=== PATIENT | male | born 1950 | race Caucasian/White ===

== ENCOUNTER 2022-04-24 15:46 | Emergency (ER) | payer MEDICARE, OTHER ==
[~2022-04-24] VITALS: Ht 183 cm; Wt 104.0 kg
--- NOTE | 2022-04-24 16:17 | ED Neurological Problem ---
General Chief Complaint: Altered Mental Status Stated Complaint: CONFUSION History of Present Illness Date Seen by Provider: April 24, 2022 Time Seen by Provider: 15:55 Initial Comments 71-year-old male with history of CVA x2 most recently in February 21, 2022 here after being found down. Sister states that she went over to pick him up around 3 to bring him to her house for dinner. Patient knocked on the door he did not respond. She got some help and they open the door. He was asleep on the couch. They could not arouse him or wake him. They got someone to come help check the blood pressure. Patient then snapped out of his unresponsiveness and was asking what they were doing. Patient does seem to have some difficulty with recollection. They state that this has been going on for about a week. They state that he has been improving after his February 21 stroke and was doing well up until about a week ago when he started having given difficulty especially with short-term memory. Patient is able to remember long-term but is not having any success with short-term memory. Patient denies any pain today. 1 sister states he had a little right-sided eye droopiness when they woke up but is not there now. Patient denies any headache. Patient denies any chest pain. No shortness of breath. No abdominal pain. No nausea no vomiting. Denies any weakness. Denies any numbness tingling. Patient is able to move all extremities. Timing/Duration: unknown, increasing Severity: moderate Associated Symptoms: confusion, loss of consciousness; No slurred speech, No tingling in legs/feet Allergies and Home Medications Patient Home Medication List Home Medication List Reviewed: Yes Aspirin (Adult Low Dose Aspirin EC) 81 Mg Tablet.dr, 81 MG PO DAILY PRN for cva Prescribed by: Bindu Sosa on 04/24/221731 Last Action: New Order Atorvastatin Calcium (Atorvastatin Calcium) 40 Mg Tablet, 40 MG PO DAILY Prescribed by: Bindu Sosa on 04/24/221731 Last Action: New Order Cetirizine HCl (Zyrtec) 10 Mg Tablet, 10 MG PO DAILY PRN for CONGESTION Prescribed by: Bindu Sosa on 04/24/221731 Last Action: New Order Cyanocobalamin (Vitamin B-12) (Vitamin B-12) 1,000 Mcg Tab.subl, 1,000 MCG SL DAILY Prescribed by: Bindu Sosa on 04/24/221731 Last Action: New Order Risperidone (Risperidone) 0.25 Mg Tablet, 0.25 MG PO HS Prescribed by: Bindu Sosa on 04/24/221731 Last Action: New Order Sertraline HCl (Sertraline HCl) 100 Mg Tablet, 100 MG PO DAILY Prescribed by: Bindu Sosa on 04/24/221731 Last Action: New Order Tamsulosin HCl (Flomax) 0.4 Mg Cap, 0.4 MG PO DAILY Prescribed by: Bindu Sosa on 04/24/221731 Last Action: New Order Thiamine HCl (B-1) 100 Mg Tablet, 100 MG PO DAILY Prescribed by: Bindu Sosa on 04/24/221731 Last Action: New Order Valsartan (Valsartan) 160 Mg Tablet, 160 MG PO DAILY Prescribed by: Bindu Sosa on 04/24/221731 Last Action: New Order Review of Systems Review of Systems Constitutional: see HPI Psychiatric/Neurological: Cognitive Dysfunction; Denies Headache, Denies Numbness, Denies Weakness Past Eyxtxuo-Onyfoc-Kertil Hx Patient Social History Tobacco Use?: No Physical Exam Vital Signs Vital Signs - First Documented 04/24/22 15:46 Temp 36.4 Pulse 73 Resp 12 B/P (MAP) 170/96 (120) Pulse Ox 97 O2 Delivery Room Air Capillary Refill : Height, Weight, BMI Height: '" Weight: lbs. oz. kg; BMI Method: General Appearance: WD/WN, no apparent distress HEENT: PERRL/EOMI, normal ENT inspection, TMs normal, pharynx normal Stroke Onset of Symptoms Date of Onset of Symptoms: April 24, 2022 Time of Symptom Onset: 15:00 Onset of Symptoms: Yes Symptoms onset unknown: Yes NIH Stroke Scale Assessment Select: Initial Level of Consciousness: 0=Alert (0), Level of Consciousness- Questions: 0=Answers both month/age (0), Gaze: Normal (0), Visual [place]: 0=No visual loss (0), Facial Movement (Facial Paresis): 0=Normal symmetrical mnt (0), Motor Function-Arms Right: 0=No drift (0), Motor Function-Arms Left: 0=No drift (0), Motor Function-Legs Right: 0=No drift (0), Motor Function- Legs Left: 0=No drift (0), Limb Ataxia: 0=Absent (0), Sensory: 0=Normal:no loss (0), Best Language: 0=No aphasia (0), Dysarthria: 0=Normal (0), Extinction & Inattention: 0=No abnormality (0), Total: 0 Stroke Thrombolytic Exclusion Age 18 or Over: Yes History of CVA: Yes Progress/Results/Core Measures Results/Orders Lab Results Laboratory Tests Test 04/24/22 16:18 04/24/22 16:47 04/24/22 17:30 Range/Units White Blood Count 5.2 4.3-11.0 10^3/uL Red Blood Count 4.03 L 4.30-5.52 10^6/uL Hemoglobin 12.1 L 13.3-17.7 g/dL Hematocrit 36 L 40-54 % Mean Corpuscular Volume 88 80-99 fL Mean Corpuscular Hemoglobin 30 25-34 pg Mean Corpuscular Hemoglobin Concent 34 32-36 g/dL Red Cell Distribution Width 12.3 10.0-14.5 % Platelet Count 192 130-400 10^3/uL Mean Platelet Volume 9.6 9.0-12.2 fL Immature Granulocyte % (Auto) 0 % Neutrophils (%) (Auto) 69 42-75 % Lymphocytes (%) (Auto) 22 12-44 % Monocytes (%) (Auto) 8 0-12 % Eosinophils (%) (Auto) 1 0-10 % Basophils (%) (Auto) 1 0-10 % Neutrophils # (Auto) 3.6 1.8-7.8 10^3/uL Lymphocytes # (Auto) 1.1 1.0-4.0 10^3/uL Monocytes # (Auto) 0.4 0.0-1.0 10^3/uL Eosinophils # (Auto) 0.1 0.0-0.3 10^3/uL Basophils # (Auto) 0.0 0.0-0.1 10^3/uL Immature Granulocyte # (Auto) 0.0 0.0-0.1 10^3/uL Sodium Level 140 135-145 MMOL/L Potassium Level 4.4 3.6-5.0 MMOL/L Chloride Level 104 98-107 MMOL/L Carbon Dioxide Level 22 21-32 MMOL/L Anion Gap 14 5-14 MMOL/L Blood Urea Nitrogen 13 7-18 MG/DL Creatinine 0.82 0.60-1.30 MG/DL Estimat Glomerular Filtration Rate 93 BUN/Creatinine Ratio 16 Glucose Level 105 70-105 MG/DL Calcium Level 9.0 8.5-10.1 MG/DL Corrected Calcium 9.1 8.5-10.1 MG/DL Total Bilirubin 0.6 0.1-1.0 MG/DL Aspartate Amino Transf (AST/SGOT) 18 5-34 U/L Alanine Aminotransferase (ALT/SGPT) 16 0-55 U/L Alkaline Phosphatase 77 40-136 U/L Troponin I < 0.028 <0.028 NG/ML Total Protein 6.4 6.4-8.2 GM/DL Albumin 3.9 3.2-4.5 GM/DL Urine Color YELLOW Urine Clarity CLEAR Urine pH 6.0 5-9 Urine Specific [place] 1.025 H 1.016-1.022 Urine Protein NEGATIVE NEGATIVE Urine Glucose (UA) NEGATIVE NEGATIVE Urine Ketones NEGATIVE NEGATIVE Urine Nitrite NEGATIVE NEGATIVE Urine Bilirubin NEGATIVE NEGATIVE Urine Urobilinogen 0.2 < = 1.0 MG/DL Urine Leukocyte Esterase NEGATIVE NEGATIVE Urine RBC (Auto) NEGATIVE NEGATIVE Urine RBC NONE /HPF Urine WBC NONE /HPF Urine Crystals NONE /LPF Urine Bacteria NEGATIVE /HPF Urine Casts NONE /LPF Urine Mucus NEGATIVE /LPF Urine Culture Indicated NO My Orders Orders - BINDU SOSA MD Cbc With Automated Diff (04/24/22 16:09) Protime With Inr (04/24/22 16:09) Partial Thromboplastin Time (04/24/22 16:09) Comprehensive Metabolic Panel (04/24/22 16:09) Fibrin Degradation Products (04/24/22 16:09) Troponin I Teresita (04/24/22 16:09) Ua Culture If Indicated (04/24/22 16:09) Chest 1 View, Ap/Pa Only (04/24/22 16:09) Ekg Tracing (04/24/22 16:09) Nothing By Mouth (04/24/22 Dinner) Accucheck Stat ONCE (04/24/22 16:09) Ed Iv/Invasive Line Start (04/24/22 16:09) Vital Signs Stroke Patient Q15M (04/24/22 16:09) Ct Head Wo-R/O Stroke (04/24/22 16:09) O2 (04/24/22 16:09) Intake & Output 06,14,22 (04/24/22 16:09) Monitor-Rhythm Ecg Trace Only (04/24/22 16:09) Dysphagia Screening Tool [id number] (04/24/22 16:09) Lipid Panel (04/25/22 06:00) Vital Signs/I&O 04/24/22 15:46 Temp 36.4 Pulse 73 Resp 12 B/P (MAP) 170/96 (120) Pulse Ox 97 O2 Delivery Room Air Progress Progress Note #1: Time: 17:21 Progress Note patient still the same. no change. sisters state he is more anxious over the past 10 days. Progress Note #2: Time: 18:[address] reviewed. Discussed results of labs and CT with patient and family. Will discharge patient to back to the longterm. Patient will be following up with primary care. The sisters will call tomorrow morning first thing to get an appointment as they begin to do anyway. Return to ER if further status mental status changes. Initial ECG Impression Date: April 24, 2022 Initial ECG Impression Time: 17:18 Initial ECG Rate: 68 Initial ECG Rhythm: Normal Sinus Initial ECG Intervals: Normal Initial ECG Impression: Normal Diagnostic Imaging Diagonstic Imaging: Xray Plain Films/CT/US/NM/MRI: chest Comments [place] NAME: BOB GOINS [facility] REC#: [id number] PT STATUS: REG ER : 1950 PHYSICIAN: BINDU SOSA MD ADMIT DATE: 04/24/22/ER Signed Date of Exam:04/24/22 CHEST 1 VIEW, AP/PA ONLY INDICATION: Altered mental status. FINDINGS: The heart size, mediastinal configuration, and pulmonary vascularity are within normal limits. There is no pleural effusion, pneumothorax, or pneumonia. The osseous structures are unremarkable. IMPRESSION: No acute cardiopulmonary abnormality. Dictated by: Dictated on workstation # [id number] Dict: 04/24/22 1637 Trans: 04/24/22 0291 [facility] [id number] Interpreted by: JESÚS POOLE MD Electronically signed by: JESÚS POOLE MD 04/24/22 1655 Reviewed: Reviewed/Discussed Diagonstic Imaging: CT Plain Films/CT/US/NM/MRI: head Comments [place], [place] NAME: BOB GOINS [facility] REC#: [id number] PT STATUS: REG ER : 1950 PHYSICIAN: BINDU SOSA MD ADMIT DATE: 04/24/22/ER Signed Date of Exam:04/24/22 CT HEAD WO-R/O STROKE PROCEDURE: CT head wo r/o stroke. TECHNIQUE: Multiple contiguous axial images were obtained through the brain without the use of intravenous contrast. Auto Exposure Controls were utilized during the CT exam to meet ALARA standards for radiation dose reduction. INDICATION: Neurologic deficit and possible stroke. FINDINGS: There is prominence of the ventricles and sulci. There is mild chronic microvascular ischemic disease. No hydrocephalus. No midline shift. There is no intracranial mass, hemorrhage or extra-axial fluid collection. There is some encephalomalacia in the right temporal lobe compatible with either subacute or chronic CVA. The calvarium is intact. Sinuses and mastoid air cells are clear. IMPRESSION: 1. Atrophy and some chronic microvascular ischemic disease with focal encephalomalacia in the right temporal lobe compatible with either subacute or chronic CVA. 2. No other acute intracranial abnormality. Dictated by: Dictated on workstation # [id number] Dict: 04/24/22 1634 Trans: 04/24/22 1655 [facility] [id number] Interpreted by: JESÚS POOLE MD Electronically signed by: JESÚS POOLE MD 04/24/225 Departure Impression Primary Impression: Mental status change resolved Additional Impressions: History of CVA (cerebrovascular accident) HTN (hypertension) Qualified Codes: I10 - Essential (primary) hypertension Disposition: 01 HOME, SELF-CARE Condition: Stable Departure-Patient Inst. Decision time for Depature: 17:30 Referrals: REGINA SEARS DO (PCP/Family) Primary Care Physician Patient Instructions: Delirium (Confusion), High Blood Pressure (DC), Heart Healthy Diet Scripts Cyanocobalamin (Vitamin B-12) (Vitamin B-12) 1,000 Mcg Tab.subl 1000 MCG SL DAILY for 30 Days, #30 TAB Prov: BINDU SOSA MD 04/24/22 Thiamine HCl (B-1) 100 Mg Tablet 100 MG PO DAILY for 30 Days, #30 TAB Prov: BINDU SOSA MD 04/24/22 Atorvastatin Calcium (Atorvastatin Calcium) 40 Mg Tablet 40 MG PO DAILY for 30 Days, #30 TAB Prov: BINDU SOSA MD 04/24/22 Risperidone (Risperidone) 0.25 Mg Tablet 0.25 MG PO HS for 30 Days, #30 TAB Prov: BINDU SOSA MD 04/24/22 Tamsulosin HCl (Flomax) 0.4 Mg Cap 0.4 MG PO DAILY for 30 Days, #30 CAP Prov: BINDU SOSA MD 04/24/22 Valsartan (Valsartan) 160 Mg Tablet 160 MG PO DAILY for Blood Pressure for 30 Days, #30 TAB Prov: BINDU SOSA MD 04/24/22 Sertraline HCl (Sertraline HCl) 100 Mg Tablet 100 MG PO DAILY for 30 Days, TAB Prov: BINDU SOSA MD 04/24/22 Cetirizine HCl (Zyrtec) 10 Mg Tablet 10 MG PO DAILY PRN for CONGESTION for 30 Days, TAB Prov: BINDU SOSA MD 04/24/22 Aspirin (Adult Low Dose Aspirin EC) 81 Mg Tablet.dr 81 MG PO DAILY PRN for cva for 30 Days, TAB Prov: BINDU SOSA MD 04/24/22 BINDU SOSA MD April 24, 2022 16:17
[2022-04-24 16:26] LABS: BASOPHILS % (AUTO) 1 % (0-10); EOSINOPHILS # (AUTO) 0.1 10^3/uL (0.0-0.3); EOSINOPHILS % (AUTO) 1 % (0-10); HEMATOCRIT 36 % (40-54); HEMOGLOBIN 12.1 g/dL (13.3-17.7); LYMPHOCYTES # (AUTO) 1.1 10^3/uL (1.0-4.0); LYMPHOCYTES % (AUTO) 22 % (12-44); MEAN CORPUSCULAR HEMOGLOBIN 30 pg (25-34); MEAN CORPUSCULAR HGB CONC 34 g/dL (32-36); MEAN CORPUSCULAR VOLUME 88 fL (80-99); MEAN PLATELET VOLUME 9.6 fL (9.0-12.2); MONOCYTES # (AUTO) 0.4 10^3/uL (0.0-1.0); MONOCYTES % (AUTO) 8 % (0-12); NEUTROPHILS # (AUTO) 3.6 10^3/uL (1.8-7.8); NEUTROPHILS % (AUTO) 69 % (42-75); PLATELET COUNT 192 10^3/uL (130-400); WHITE BLOOD COUNT 5.2 10^3/uL (4.3-11.0)
--- NOTE | 2022-04-24 16:39 | Diagnostic Imaging Report ---
PROCEDURE: CT head wo r/o stroke. TECHNIQUE: Multiple contiguous axial images were obtained through the brain without the use of intravenous contrast. Auto Exposure Controls were utilized during the CT exam to meet ALARA standards for radiation dose reduction. INDICATION: Neurologic deficit and possible stroke. FINDINGS: There is prominence of the ventricles and sulci. There is mild chronic microvascular ischemic disease. No hydrocephalus. No midline shift. There is no intracranial mass, hemorrhage or extra-axial fluid collection. There is some encephalomalacia in the right temporal lobe compatible with either subacute or chronic CVA. The calvarium is intact. Sinuses and mastoid air cells are clear. IMPRESSION: 1. Atrophy and some chronic microvascular ischemic disease with focal encephalomalacia in the right temporal lobe compatible with either subacute or chronic CVA. 2. No other acute intracranial abnormality. Dictated by: Dictated on workstation # [id number]
--- NOTE | 2022-04-24 16:40 | Diagnostic Imaging Report ---
INDICATION: Altered mental status. FINDINGS: The heart size, mediastinal configuration, and pulmonary vascularity are within normal limits. There is no pleural effusion, pneumothorax, or pneumonia. The osseous structures are unremarkable. IMPRESSION: No acute cardiopulmonary abnormality. Dictated by: Dictated on workstation # [id number]
[2022-04-24 16:44] LABS: ALBUMIN 3.9 GM/DL (3.2-4.5)
[2022-04-24 16:45] LABS: CHLORIDE 104 MMOL/L (98-107); POTASSIUM 4.4 MMOL/L (3.6-5.0); SODIUM 140 MMOL/L (135-145)
[2022-04-24 16:47] LABS: GLUCOSE 105 MG/DL (70-105); TOTAL PROTEIN 6.4 GM/DL (6.4-8.2)
[2022-04-24 16:48] LABS: CARBON DIOXIDE 22 MMOL/L (21-32)
[2022-04-24 16:49] LABS: BILIRUBIN,TOTAL 0.6 MG/DL (0.1-1.0)
[2022-04-24 16:50] LABS: ALKALINE PHOSPHATASE 77 U/L (40-136)
[2022-04-24 16:51] LABS: CREATININE SERUM 0.82 MG/DL (0.60-1.30); GFR ESTIMATED 93
[2022-04-24 16:52] LABS: BUN/CREATININE RATIO 16
[2022-04-24 16:53] LABS: ALANINE AMINOTRANSFERASE 16 U/L (0-55)
[2022-04-24 17:01] LABS: BILIRUBIN,URINE NEGATIVE (NEGATIVE); CLARITY,URINE CLEAR; COLOR,URINE YELLOW; GLUCOSE, URINE (UA) NEGATIVE (NEGATIVE); KETONES,URINE NEGATIVE (NEGATIVE); LEUKOCYTE ESTERASE ,URINE NEGATIVE (NEGATIVE); NITRITE,URINE NEGATIVE (NEGATIVE); PROTEIN,URINE NEGATIVE (NEGATIVE)
[2022-04-24 17:10] LABS: BACTERIA,URINE NEGATIVE /HPF
[2022-04-24] MEDS ORDERED: TMSL.4C PO (17:32)
[2022-04-24] MEDS ORDERED: VALS160T29 PO (17:32)
[2022-04-24] MEDS ORDERED: RISP0.253 PO (17:32)
[2022-04-24] MEDS ORDERED: ASPI-479 PO (17:32)
[2022-04-24] MEDS ORDERED: CETI10TA49 PO (17:32)
[2022-04-24] MEDS ORDERED: THIA100T66 PO (17:32)
[2022-04-24] MEDS ORDERED: ATOR40TA70 PO (17:32)
[2022-04-24] MEDS ORDERED: CYAN100015 SL (17:32)
[2022-04-24] MEDS ORDERED: SERT-414 PO (17:32)
[2022-04-24 18:17] LABS: FIBRIN DEGRADATION PRODUCTS 0.3 UG/ML (0.00-0.49); PROTHROMBIN TIME PATIENT 13.7 SEC (12.2-14.7)
[2022-04-25 00:52] VITALS: BP 172/93
== END 2022-04-24 18:24 | disposition home or self-care (01) ==
LOC: ER 15:47
DX: R41.82 Altered mental status, unspecified (principal); I10 Essential (primary) hypertension; R29.700 NIHSS score 0; Z86.73 Personal history of transient ischemic attack (TIA), and cerebral infarction without residual deficits
CPT/HCPCS: 36415; 70450; 71045; 80053; 81000; 84484; 85025; 85379; 85610; 85730; 93005; 93041

== ENCOUNTER → 2022-05-08 | Outpatient (CLI) | payer MEDICARE, OTHER ==
[~2022-05-08] MED LIST: ASPI-479 PO; ATOR40TA70 PO; CETI10TA49 PO; CYAN100015 SL; RISP0.253 PO; SERT-414 PO; THIA100T66 PO; TMSL.4C PO; VALS160T29 PO
== END ==
LOC: CARD 14:00
PROVIDERS: ATTEND Internal Medicine Cardiovascular Disease
DX: I49.9 Cardiac arrhythmia, unspecified (principal); I10 Essential (primary) hypertension; I25.10 Atherosclerotic heart disease of native coronary artery without angina pectoris
CPT/HCPCS: 93225; 93226; 93306

== ENCOUNTER 2022-06-26 05:46 | Outpatient (CLI) | payer MEDICARE, OTHER ==
[~2022-06-26] VITALS: Ht 182.9 cm; Wt 99.1 kg
[2022-06-26] MEDS ORDERED: CETI10TA17 PO (14:52)
[2022-06-26] MEDS ORDERED: TMSL.4C PO (14:52)
[2022-06-26] MEDS ORDERED: THIA100T80 PO (14:52)
[2022-06-26] MEDS ORDERED: RISP0.5T65 PO (14:52)
[2022-06-26] MEDS ORDERED: VALS160T29 PO (14:52)
[2022-06-26] MEDS ORDERED: ASPI-1238 PO (14:52)
[2022-06-26] MEDS ORDERED: MELA5TAB14 PO (14:52)
[2022-06-26] MEDS ORDERED: MTP25TSR PO (14:52)
[2022-06-26] MEDS ORDERED: ATOR40TA70 PO (14:52)
[2022-06-26] MEDS ORDERED: CYAN100088 PO (14:52)
[2022-06-26] MEDS ORDERED: SERT-414 PO (14:52)
== END 2022-06-26 14:53 | disposition home or self-care (01) ==
LOC: PREOP 05:46
PROVIDERS: ATTEND Specialist
DX: Z01.818 Encounter for other preprocedural examination (principal)

== ENCOUNTER 2022-06-28 09:08 | Day surgery (SDC) | payer MEDICARE, OTHER ==
[~2022-06-28] VITALS: Ht 182.9 cm; Wt 98.6 kg
[~2022-06-28 09:08] MED LIST changes: +ASPI-1238 PO; +CETI10TA17 PO; +CYAN100088 PO; +MELA5TAB14 PO; +MTP25TSR PO; +RISP0.5T65 PO; +THIA100T80 PO
[2022-06-28] MEDS ORDERED: LIDOCAINE 2% 20 ML (XYLOCAINE) VIAL ONE (09:27)
[2022-06-28] MEDS ORDERED: LIDOCAINE 1% INJ 20 ML VIAL INJ ONE (09:30)
[2022-06-28] MEDS ORDERED: LIDOCAINE 1% INJ 20 ML VIAL ONE (09:48)
--- NOTE | 2022-06-28 10:18 | Implantation of Loop Monitor ---
Implant of Loop Monitior IMPLANTATION OF LOOP MONITOR REPORT DATE OF PROCEDURE: 06/28/22 PREOP DIAGNOSIS: Cryptogenic stroke POSTOP DIAGNOSIS: Cryptogenic stroke PROCEDURE DETAILS: The patient is a 71 male with history of cryptogenic stroke requiring long-term surveillance. Therefore implantable loop recorder was discussed and agreed with the patient. Informed consent was taken. All risks and complications were discussed at length. The patient was draped and prepped in the usual sterile fashion. Local anesthesia was lidocaine, which was given in the substernal area close to the 4th intercostal space. Loop monitor [employer] with serial number [id number] was implanted according to the protocol. Steri-Strips were placed at the end of the procedure. There were no complications and the patient tolerated the procedure well. ANESTHESIA: Local anesthesia with lidocaine. COMPLICATIONS: None CONTRAST/FLUOROSCOPY: None CONCLUSION: Successful implantation of loop monitor with no complication FINAL DIAGNOSIS: Cryptogenic stroke Hypertension Hyperlipidemia FERNANDA LAW MD Jun 28, 2022 10:18
== END 2022-06-28 10:50 ==
LOC: CATH 09:08
PROVIDERS: ATTEND Internal Medicine Cardiovascular Disease
DX: I63.9 Cerebral infarction, unspecified (principal); I10 Essential (primary) hypertension; E78.5 Hyperlipidemia, unspecified; I25.10 Atherosclerotic heart disease of native coronary artery without angina pectoris; I49.9 Cardiac arrhythmia, unspecified; I65.23 Occlusion and stenosis of bilateral carotid arteries; Z79.82 Long term (current) use of aspirin; Z87.891 Personal history of nicotine dependence
CPT/HCPCS: 33285; C1764

== ENCOUNTER 2022-06-30 06:25 | Day surgery (SDC) | payer MEDICARE, OTHER ==
[~2022-06-30] VITALS: Ht 182.9 cm; Wt 98.6 kg
[2022-06-30] MEDS: TETRACAINE 0.5% OPHTH SOLN 4 ML BTL (SINGLE DOSE ONLY) OU PRN ×4 (06:43→07:04)
[2022-06-30] MEDS ORDERED: MOXIFLOXACIN OPHTH SOLN 5 MG/ML 0.3 ML SYRINGE OP ONE (06:45)
[2022-06-30] MEDS ORDERED: TIMOLOL MALEATE 0.5% 5 ML (TIMOPTIC) BTL OU PRN (06:45)
[2022-06-30] MEDS ORDERED: POVIDONE (BETADINE) OPHTH SOLN 5% 30 ML OP ONE (06:45)
[2022-06-30] MEDS: PHENYLEPHRINE 10% OPHTH (NEO-SYN) 5 ML BTL OU SCH ×3 (06:51→07:04)
[2022-06-30] MEDS: TROPICAMIDE 1% OPH SOLN (MYDRIACYL) 15 ML BTL OP SCH ×3 (06:51→07:04)
[2022-06-30 06:52] VITALS: BP 142/77
[2022-06-30] MEDS ORDERED: MIDAZOLAM 2 MG/2 ML (VERSED) VIAL ONE (06:55)
--- NOTE | 2022-06-30 07:12 | Ophthalmologist Pre-Op Note ---
Pre-Operative Progress Note H&P Reviewed The H&P was reviewed, patient examined and no changes noted. Date H&P Reviewed: Jun 30, 2022 Time H&P Reviewed: 07:12 Pre-Op Dx Cataract, Left Eye MARIAMA ENRIQUE MD Jun 30, 2022 07:12
[2022-06-30] MEDS ORDERED: acetaZOLAMIDE ER 500 MG CAP (DIAMOX SEQUELS) PO ONE (07:30)
--- NOTE | 2022-06-30 07:31 | Ophthalmologist Pre-Op Note ---
Pre-Operative Progress Note H&P Reviewed The H&P was reviewed, patient examined and no changes noted. Date H&P Reviewed: Jun 30, 2022 Time H&P Reviewed: 06:55 Pre-Op Dx Cataract, Right Eye MARIAMA ENRIQUE MD Jun 30, 2022 07:31
--- NOTE | 2022-06-30 07:31 | Ophthalmology Operative Report ---
Cataract, Miotic Pupil PREOPERATIVE DIAGNOSIS: 1. Cataract Right Eye 2. Miotic Pupil POSTOPERATIVE DIAGNOSIS: 1. Cataract Right Eye 2. Miotic Pupil PROCEDURE: 1. Cataract removal and placement of posterior chamber implant, right eye 2. Pupillary expansion with malyugin ring SURGEON: Keegan Enrique ANESTHESIA: Topical with sedation COMPLICATIONS: None ESTIMATED BLOOD LOSS: Minimal DESCRIPTION OF PROCEDURE: After proper informed consent was obtained, the patient, a 71 male, was taken to the Operating Room and the right eye was anesthetized with Tetracaine. The eye was then prepped and draped in the usual manner. A wire lid speculum was placed. A paracentesis was made at the left hand position. Preservative free lidocaine was injected into anterior chamber followed by viscoelastic. A clear corneal incision was made in the temporal position. The malyugin ring was injected into the anterior chamber and the pupil was dilated. A capsulorrhexis was preformed and the central nuclear and cortical material were removed. The posterior capsule was polished and Rigoberto 19.0 AU00T0 IOL was placed into the capsular bag. The malyugin ring was removed. The residual viscoelastic was aspirated and the balanced saline solution was injected into the anterior chamber. Moxifloxacin was injected into the anterior chamber. The wound was checked and found to be water tight. The patient tolerated the procedure well without complications. KEEGAN ENRIQUE MD Jun 30, 2022 07:31
[2022-06-30 07:33] VITALS: BP 119/71
--- NOTE | 2022-06-30 17:27 | Anesthesia-General Post-Op ---
MAC Patient Condition Mental Status/LOC: Same as Preop Cardiovascular: Satisfactory Nausea/Vomiting: Absent Respiratory: Satisfactory Pain: Controlled Complications: Absent Post Op Complications Complications None Follow Up Care/Instructions Patient Instructions None needed. Anesthesiology Discharge Order Discharge Order Patient is doing well, no complaints, stable vital signs, no apparent adverse anesthesia problems. No complications reported per nursing. MARBELLA DOOLEY CRNA Jun 30, 2022 17:26
== END 2022-06-30 07:36 | disposition home or self-care (01) ==
LOC: SDC 06:25
PROVIDERS: ATTEND Specialist
DX: H25.9 Unspecified age-related cataract (principal); H57.03 Miosis; Z88.1 Allergy status to other antibiotic agents; Z87.891 Personal history of nicotine dependence
CPT/HCPCS: 66982; V2632

== ENCOUNTER 2022-07-11 05:27 | Outpatient (CLI) | payer MEDICARE, OTHER | END 2022-07-11 10:48 | LOC: PREOP 05:27 | PROVIDERS: ATTEND Specialist | DX: Z01.818 Encounter for other preprocedural examination (principal) ==

== ENCOUNTER 2022-07-14 06:23 | Day surgery (SDC) | payer MEDICARE, OTHER ==
[~2022-07-14] VITALS: Ht 182.9 cm; Wt 98.6 kg
[2022-07-14] MEDS: TETRACAINE 0.5% OPHTH SOLN 4 ML BTL (SINGLE DOSE ONLY) OU PRN ×4 (06:28→06:46)
[2022-07-14] MEDS ORDERED: POVIDONE (BETADINE) OPHTH SOLN 5% 30 ML OP ONE (06:30)
[2022-07-14] MEDS ORDERED: MOXIFLOXACIN OPHTH SOLN 5 MG/ML 0.3 ML SYRINGE OP ONE (06:30)
[2022-07-14] MEDS ORDERED: TIMOLOL MALEATE 0.5% 5 ML (TIMOPTIC) BTL OU PRN (06:30)
[2022-07-14 06:33] VITALS: BP 131/81
[2022-07-14] MEDS: TROPICAMIDE 1% OPH SOLN (MYDRIACYL) 15 ML BTL OP SCH ×3 (06:35→06:46)
[2022-07-14] MEDS: PHENYLEPHRINE 10% OPHTH (NEO-SYN) 5 ML BTL OU SCH ×3 (06:35→06:46)
[2022-07-14] MEDS ORDERED: MIDAZOLAM 2 MG/2 ML (VERSED) VIAL ONE (06:51)
--- NOTE | 2022-07-14 07:00 | Ophthalmologist Pre-Op Note ---
Pre-Operative Progress Note H&P Reviewed The H&P was reviewed, patient examined and no changes noted. Date H&P Reviewed: Jul 14, 2022 Time H&P Reviewed: 06:59 Pre-Op Dx Cataract, Left Eye MARIAMA ENRIQUE MD Jul 14, 2022 07:00
--- NOTE | 2022-07-14 07:20 | Ophthalmology Operative Report ---
Cataract removal/placement IOL PREOPERATIVE DIAGNOSIS: Cataract Left Eye POSTOPERATIVE DIAGNOSIS: Cataract Left Eye PROCEDURE: Cataract removal and placement of posterior chamber implant, left eye SURGEON: Keegan Enrique ANESTHESIA: Topical with sedation COMPLICATIONS: None ESTIMATED BLOOD LOSS: Minimal DESCRIPTION OF PROCEDURE: After proper informed consent was obtained, the patient, a 71 male, was taken to the Operating Room and the left eye was anesthetized with tetracaine. The left eye was then prepped and draped in the usual manner. A wire lid speculum was placed. A paracentesis was made at the left hand position. Preservative free lidocaine was injected into the anterior chamber followed by viscoelastic. A clear corneal incision was made in the temporal position. A capsulorrhexis was preformed and the central nuclear and cortical material were removed. The posterior capsule was polished and an Rigoberto 17.5 AU00T0 was placed into the capsular bag. The residual viscoelastic was aspirated and balanced saline solution was injected into the anterior chamber. Moxifloxacin was injected into the anterior chamber. The wound was checked and found to be water tight. The patient tolerated the procedure well without complications. KEEGAN ENRIQUE MD Jul 14, 2022 07:20
[2022-07-14] MEDS ORDERED: acetaZOLAMIDE ER 500 MG CAP (DIAMOX SEQUELS) PO ONE (09:00)
--- NOTE | 2022-07-14 14:41 | Anesthesia-General Post-Op ---
MAC Patient Condition Mental Status/LOC: Same as Preop Cardiovascular: Satisfactory Nausea/Vomiting: Absent Respiratory: Satisfactory Pain: Controlled Complications: Absent Post Op Complications Complications None Follow Up Care/Instructions Patient Instructions None needed. Anesthesiology Discharge Order Discharge Order Patient is doing well, no complaints, stable vital signs, no apparent adverse anesthesia problems. No complications reported per nursing. LEANA CARY CRNA Jul 14, 2022 14:41
== END 2022-07-14 07:25 ==
LOC: SDC 06:23
PROVIDERS: ATTEND Specialist
DX: H25.12 Age-related nuclear cataract, left eye (principal); Z87.891 Personal history of nicotine dependence
CPT/HCPCS: 66984; V2632

== ENCOUNTER → 2023-01-01 | Outpatient (CLI) | payer MEDICARE, OTHER ==
[~2023-01-01] MED LIST changes: +GADOTERATE 0.5 MMOL/ML (CLARISCAN) 20 ML VIAL IV ONE
--- NOTE | 2023-01-01 11:04 | Diagnostic Imaging Report ---
Clinical indication: Patient is having memory problems. Patient had 2 previous strokes. Exam: MRI of the brain performed without and with 20 cc of Clariscan IV contrast. Sequences include axial DWI, ADC map, coronal gradient echo, axial FLAIR, axial T1, axial T2, axial T1 post IV contrast whole brain, coronal T1 fat-sat post IV contrast whole brain, and sagittal T1 fat-sat post IV contrast whole brain. Comparison: Head CT without contrast dated 04/24/2022. Findings: There is no evidence of acute cerebral infarct, intracranial hemorrhage, or gross mass effect. There is no abnormal IV contrast enhancement. Stable moderate sized chronic infarct involving the medial right temporal lobe and right occipital lobe region with adjacent gliosis. There are multiple focal, patchy, confluent areas of high T2 signal white matter changes involving both cerebral hemispheres and periventricular regions, likely representing chronic small vessel ischemic disease and leukoaraiosis. The brain parenchymal volume appears appropriate for patient's age. There is normal huitron-white matter distinction. There is no significant midline shift or herniation. There is a lobulated flow void area seen near the right MCA genu and aneurysm should be excluded. There is no evidence of hydrocephalus. The basal cisterns are unremarkable. The skull, extracranial soft tissue, and orbits are unremarkable. There is mild mucosal thickening involving ethmoid sinus and minimal amount involving both maxillary sinuses. Temporal bones show no significant abnormality. IMPRESSION: 1: There is no evidence of acute intracranial process. There is no abnormal IV contrast enhancement. 2: There is a lobulated flow void area seen near the right MCA genu region. An aneurysm should be excluded. CT angiogram of the head and neck is suggested for further evaluation. 3: There is a chronic cerebral infarct involving the medial right temporal lobe and right occipital lobe region. 4: There is chronic small vessel ischemic disease and leukoaraiosis. Dictated by: Dictated on workstation # [id number]
== END ==
LOC: RAD 09:01
PROVIDERS: ATTEND Family Medicine
DX: I63.89 Other cerebral infarction (principal); I67.82 Cerebral ischemia; I67.81 Acute cerebrovascular insufficiency
CPT/HCPCS: 70553

== ENCOUNTER 2023-01-27 09:06 | Emergency (ER) | payer MEDICARE, OTHER ==
[~2023-01-27] VITALS: Ht 182.8 cm; Wt 104.3 kg
[~2023-01-27 09:06] MED LIST changes: -GADOTERATE 0.5 MMOL/ML (CLARISCAN) 20 ML VIAL IV ONE
[2023-01-27 09:40] LABS: BASOPHILS % (AUTO) 0 % (0-10); EOSINOPHILS % (AUTO) 0 % (0-10); HEMATOCRIT 40 % (40-54); HEMOGLOBIN 13.7 g/dL (13.3-17.7); LYMPHOCYTES # (AUTO) 0.6 10^3/uL (1.0-4.0); LYMPHOCYTES % (AUTO) 5 % (12-44); MEAN CORPUSCULAR HEMOGLOBIN 28 pg (25-34); MEAN CORPUSCULAR HGB CONC 34 g/dL (32-36); MEAN CORPUSCULAR VOLUME 84 fL (80-99); MEAN PLATELET VOLUME 9.1 fL (9.0-12.2); MONOCYTES # (AUTO) 0.6 10^3/uL (0.0-1.0); MONOCYTES % (AUTO) 5 % (0-12); NEUTROPHILS # (AUTO) 9.8 10^3/uL (1.8-7.8); NEUTROPHILS % (AUTO) 89 % (42-75); PLATELET COUNT 208 10^3/uL (130-400)
--- NOTE | 2023-01-27 09:44 | ED General ---
General Chief Complaint: Neuro-Stroke Like Symptoms Stated Complaint: POSSIBLE TIA Source of Information: Patient, Family (sisters) Exam Limitations: Other (dementia) History of Present Illness Date Seen by Provider: Jan 27, 2023 Time Seen by Provider: 09:23 Initial Comments 72-year-old male brought in by his sister states they found him on the floor this morning. He lives in an assisted living facility and independent history is obtained from the patient and from his 2 sisters. He tells me he does not know why he is here. He does not recall being on the floor this morning. His sister states they last saw him well in the evening last night. They went to check on him this morning and found him lying on the floor. He did not have any obvious evidence of trauma. Notably he has been being evaluated for abnormal activity, strange behaviors since about November. He had a thorough work-up and was ultimately diagnosed with vascular dementia. He has had several strokes in the past with the first being in 2004 and the most recent being about 1 year ago. His sisters say he has had progressively worsening on behaviors including transferring running around into his own bank accounts, putting his socks on the same foot, etc. The patient himself has no complaints when I speak to him. He denies any pain anywhere. Again he does not remember being on the floor. He denies a headache or changes in vision. No upper or lower extremity weakness numbness or tingling. All other systems reviewed and negative except documented per HPI. Voice recognition software was used to help create this chart Allergies and Home Medications Allergies Coded Allergies: Beta-Adrenergic Agents (Verified Allergy, Unknown, 06/26/22) amoxicillin (Verified Allergy, Unknown, 06/26/22) Patient Home Medication List Home Medication List Reviewed: Yes Aspirin (Aspirin EC) 81 Mg Tablet.dr, 81 MG PO DAILY, (Reported) Entered as Reported by: SOLE MARTE on 06/26/221451 Atorvastatin Calcium (Atorvastatin Calcium) 40 Mg Tablet, 40 MG PO HS, (Reported) Entered as Reported by: SOLE MARTE on 06/26/221451 Cetirizine HCl (Cetirizine HCl) 10 Mg Tablet, 10 MG PO DAILY, (Reported) Entered as Reported by: SOLE MARTE on 06/26/221451 Cyanocobalamin (Vitamin B-12) (B-12) 1,000 Mcg Tablet, 1,000 MCG PO HS, (Reported) Entered as Reported by: SOLE MARTE on 06/26/221451 Melatonin (Melatonin) 5 Mg Tablet, 5 MG PO HS, (Reported) Entered as Reported by: SOLE MARTE on 06/26/221451 Metoprolol Succinate (Metoprolol Succinate) 25 Mg Tab.er.24h, 25 MG PO HS, (Reported) Entered as Reported by: SOLE MARTE on 06/26/221451 Risperidone (Risperidone) 0.5 Mg Tablet, 0.5 MG PO HS, (Reported) Entered as Reported by: SOLE MARTE on 06/26/221451 Sertraline HCl (Sertraline HCl) 100 Mg Tablet, 100 MG PO DAILY, (Reported) Entered as Reported by: SOLE MARTE on 06/26/221451 Tamsulosin HCl (Flomax) 0.4 Mg Cap, 0.4 MG PO HS, (Reported) Entered as Reported by: SOLE MARTE on 06/26/221451 Thiamine HCl (Vitamin B-1) 100 Mg Tablet, 100 MG PO HS, (Reported) Entered as Reported by: SOLE MARTE on 06/26/221451 Valsartan (Valsartan) 160 Mg Tablet, 160 MG PO DAILY, (Reported) Entered as Reported by: SOLE MARTE on 06/26/221451 Review of Systems Review of Systems Constitutional: no symptoms reported Past Jbagecw-[id number]-[id number] Hx Patient Social History Tobacco Use?: No Use of E-Cig and/or Vaping dev: No Substance use?: No Alcohol Use?: No Immunizations Up To Date First/Initial COVID19 Vaccinat: UNK Past Medical History Surgery/Hospitalization HX: STROKE JAN 2022 Tonsillectomy Currently Using CPAP: No Currently Using BIPAP: No Atrial Fibrillation, Hypertension Stroke, TIA Ulcer Family Medical History Reviewed Nursing Family Hx No Pertinent Family Hx Physical Exam Vital Signs Vital Signs - First Documented 01/27/23 09:15 Temp 37.0 Pulse 65 Resp 18 B/P (MAP) 107/78 (88) Pulse Ox 95 O2 Delivery Room Air Capillary Refill : Height, Weight, BMI Height: '" Weight: lbs. oz. kg; 29.47 BMI Method: General Appearance: No Apparent Distress, WD/WN Eyes: Bilateral Eye Normal Inspection, Bilateral Eye PERRL, Bilateral Eye EOMI HEENT: PERRL/EOMI, TMs Normal, Normal ENT Inspection, Pharynx Normal Neck: Full Range of Motion, Normal Inspection, Non Tender, Supple Respiratory: Chest Non Tender, Lungs Clear, Normal Breath Sounds, No Accessory Muscle Use, No Respiratory Distress Cardiovascular: Regular Rate, Rhythm, No Murmur, Normal Peripheral Pulses Gastrointestinal: Normal Bowel Sounds, No Organomegaly, Non Tender, Soft Back: Normal Inspection, No Vertebral Tenderness Extremity: Normal Capillary Refill, Normal Inspection, Normal Range of Motion, Non Tender, No Calf Tenderness, No Pedal Edema Neurologic/Psychiatric: Alert, No Motor/Sensory Deficits, Normal Mood/Affect, relocation associate II-XII Norm as Tested, Other (Person. Does not follow place or time) Skin: Normal Color, Warm/Dry Lymphatic: No Adenopathy Progress/Results/Core Measures Suspected Sepsis SIRS Temperature: Pulse: Respiratory Rate: Laboratory Tests 01/27/23 09:26: White Blood Count 11.0 Blood Pressure / Mean: Laboratory Tests 01/27/23 09:26: Creatinine 0.92, INR Comment 0.9, Platelet Count 208, Total Bilirubin 0.7 Results/Orders Lab Results Laboratory Tests Test 01/27/23 09:26 01/27/23 09:27 Range/Units White Blood Count 11.0 4.3-11.0 10^3/uL Red Blood Count 4.83 4.30-5.52 10^6/uL Hemoglobin 13.7 13.3-17.7 g/dL Hematocrit 40 40-54 % Mean Corpuscular Volume 84 80-99 fL Mean Corpuscular Hemoglobin 28 25-34 pg Mean Corpuscular Hemoglobin Concent 34 32-36 g/dL Red Cell Distribution Width 13.8 10.0-14.5 % Platelet Count 208 130-400 10^3/uL Mean Platelet Volume 9.1 9.0-12.2 fL Immature Granulocyte % (Auto) 1 % Neutrophils (%) (Auto) 89 H 42-75 % Lymphocytes (%) (Auto) 5 L 12-44 % Monocytes (%) (Auto) 5 0-12 % Eosinophils (%) (Auto) 0 0-10 % Basophils (%) (Auto) 0 0-10 % Neutrophils # (Auto) 9.8 H 1.8-7.8 10^3/uL Lymphocytes # (Auto) 0.6 L 1.0-4.0 10^3/uL Monocytes # (Auto) 0.6 0.0-1.0 10^3/uL Eosinophils # (Auto) 0.0 0.0-0.3 10^3/uL Basophils # (Auto) 0.0 0.0-0.1 10^3/uL Immature Granulocyte # (Auto) 0.1 0.0-0.1 10^3/uL Neutrophils % (Manual) 86 % Lymphocytes % (Manual) 9 % Monocytes % (Manual) 3 % Eosinophils % (Manual) 0 % Basophils % (Manual) 0 % Band Neutrophils 2 % Blood Morphology Comment NORMAL Prothrombin Time 13.0 12.2-14.7 SEC INR Comment 0.9 0.8-1.4 Sodium Level 140 135-145 MMOL/L Potassium Level 4.4 3.6-5.0 MMOL/L Chloride Level 105 98-107 MMOL/L Carbon Dioxide Level 22 21-32 MMOL/L Anion Gap 13 5-14 MMOL/L Blood Urea Nitrogen 13 7-18 MG/DL Creatinine 0.92 0.60-1.30 MG/DL Estimat Glomerular Filtration Rate 88 BUN/Creatinine Ratio 14 Glucose Level 107 H 70-105 MG/DL Calcium Level 9.2 8.5-10.1 MG/DL Corrected Calcium 8.9 8.5-10.1 MG/DL Total Bilirubin 0.7 0.1-1.0 MG/DL Aspartate Amino Transf (AST/SGOT) 42 H 5-34 U/L Alanine Aminotransferase (ALT/SGPT) 20 0-55 U/L Alkaline Phosphatase 84 40-136 U/L Total Protein 7.0 6.4-8.2 GM/DL Albumin 4.4 3.2-4.5 GM/DL Glucometer 99 70-110 MG/DL My Orders Orders - SEBASTIANBAUDILIO Delgado DO Comprehensive Metabolic Panel (01/27/23 09:28) Protime With Inr (01/27/23 09:28) Ct Head Wo (01/27/23 09:28) Ekg Tracing (01/27/23 09:28) Cbc With Automated Diff (01/27/23 09:28) Manual Differential (01/27/23 09:26) Vital Signs/I&O 01/27/23 09:15 Temp 37.0 Pulse 65 Resp 18 B/P (MAP) 107/78 (88) Pulse Ox 95 O2 Delivery Room Air Capillary Refill : ECG Comment I independently reviewed the EKG shows sinus rhythm 66 bpm. Normal intervals. Normal axis. No ST or T wave abnormalities. No ectopy. No STEMI. Departure Communication (Admissions) The patient is hemodynamically stable. He is pleasantly confused which is apparently his baseline. He has no focal neurologic deficits and no obvious injuries from the fall on his complaint or on full thorough physical exam. CT scan of his brain is negative for any acute infarct and again he has no focal deficits I do not think he has had a TIA. It is unclear the source of him being in the floor today. Feels electrolytes are unremarkable. I did an EKG to rule out dysrhythmia and this is negative. He is not anemic. His vital signs are normal with no hypotension, tachycardia or evidence for dehydration. Indication for x-rays he has no pain on exam. He is discharged in stable condition with supportive care. I independently evaluated the EKG and the CT scan of his brain. There is evidence for old infarction without any evidence for acute infarction Impression Primary Impression: Dementia Qualified Codes: F03.90 - Unspecified dementia, unspecified severity, without behavioral disturbance, psychotic disturbance, mood disturbance, and anxiety Disposition: 01 HOME, SELF-CARE Condition: Stable Departure-Patient Inst. Referrals: REGINA SEARS DO (PCP/Family) Primary Care Physician Add. Discharge Instructions: There is no evidence for injury, stroke or other emergent medical condition today. Continue to keep an eye on him. He may need an increased level of care that cannot be provided in an assisted living. This is a discussion you should have your family to decide how best to proceed. Return to the emergency department for any severe concerns. Follow-up with your primary doctor for any nonemergent needs. All discharge instructions reviewed with patient and/or family. Voiced understanding. BAUDILIO CORTES DO Jan 27, 2023 09:44
[2023-01-27 09:47] LABS: ALBUMIN 4.4 GM/DL (3.2-4.5); POTASSIUM 4.4 MMOL/L (3.6-5.0)
[2023-01-27 09:48] LABS: CALCIUM 9.2 MG/DL (8.5-10.1)
[2023-01-27 09:51] LABS: BILIRUBIN,TOTAL 0.7 MG/DL (0.1-1.0)
[2023-01-27 09:53] LABS: CREATININE SERUM 0.92 MG/DL (0.60-1.30)
[2023-01-27 10:21] LABS: BAND NEUTROPHILS 2 %; BASOPHILS % (MANUAL) 0 %; EOSINOPHILS % (MANUAL) 0 %; LYMPHOCYTES % (MANUAL) 9 %; MONOCYTES % (MANUAL) 3 %; NEUTROPHILS % (MANUAL) 86 %; RBC MORPH NORMAL
[2023-01-27 10:24] LABS: INR 0.9 (0.8-1.4)
--- NOTE | 2023-01-27 10:32 | Diagnostic Imaging Report ---
PROCEDURE: CT head without contrast. TECHNIQUE: Multiple contiguous axial images were obtained through the brain without the use of intravenous contrast. Auto Exposure Controls were utilized during the CT exam to meet ALARA standards for radiation dose reduction. INDICATION: 72-year-old male, fall with confusion. Found earlier today, laying on the floor. CORRELATION STUDY: 04/24/2022 FINDINGS: Generalized atrophic changes with prominence of the ventricles and sulci. Scattered areas decreased attenuation likely owing to largely chronic small vessel ischemic disease. More focal area of malacia in the right occipital lobe compatible with previous area of infarct, unchanged. No new areas decreased attenuation suggest edema. No asymmetric hyperdense intracranial vascular sign. There are rather extensive dense calcification of the distal vertebral arteries and basilar artery. Bony calvarium is intact. Paranasal sinus and mastoid air cells generally clear. IMPRESSION: 1. Stable noncontrast CT imaging of head demonstrates no acute intracranial abnormality. 2. Generalized atrophic and involutional changes. Previous right occipital lobe infarct. Dictated by: Dictated on workstation # [id number]
[2023-01-27 11:05] VITALS: BP 140/72
== END 2023-01-27 11:05 | disposition home or self-care (01) ==
LOC: EDUNIT# 09:06 → ER 09:09
DX: F03.90 Unspecified dementia, unspecified severity, without behavioral disturbance, psychotic disturbance, mood disturbance, and anxiety (principal)
CPT/HCPCS: 36415; 70450; 80053; 82947; 85007; 85027; 85610; 93005

== ENCOUNTER → 2023-02-19 | Outpatient (CLI) | payer MEDICARE, OTHER ==
[~2023-02-19] MED LIST changes: +HOLD METFORMIN - RECEIVED CONTRAST 20 ML VIAL IV SCH; +IOHEXOL 350 MG/ML 100 ML (OMNIPAQUE 350) VIAL IV ONE; +NS 100 ML (IVPB) BAG IV ONE
--- NOTE | 2023-02-19 13:21 | Diagnostic Imaging Report ---
PROCEDURE: CT angiography of the head with and without contrast. TECHNIQUE: Noncontrast CT of the head was obtained. Subsequently, after intravenous administration of contrast, thin section axial CT angiography of the head was performed. Source data was reformatted into multiple MIP reformats. Delayed postcontrast acquisition of the head was also acquired. Auto Exposure Controls were utilized during the CT exam to meet ALARA standards for radiation dose reduction. INDICATION: Short-term memory difficulty. Precontrast imaging through the brain does show encephalomalacia in the right occipital lobe consistent with prior infarct. No sulcal effacement or midline shift is identified. No acute intra-axial or extra-axial hemorrhage is detected. There is heavily calcified plaque in the distal vertebral arteries as well as bilateral carotid siphons. Basilar artery is patent. The right posterior cerebral artery is very small but appears patent. M1 and M2 segments of the middle cerebral arteries are patent. No thromboemboli or large vessel occlusion is seen. Anterior cerebral arteries are patent. There appears to be aneurysmal dilatation of the left anterior cerebral artery and the A2 segment measuring 4 to 5 mm in diameter. 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 2. No evidence of thromboemboli or large vessel occlusion. Dictated by: Dictated on workstation # [id number]
== END ==
LOC: RAD 09:21
PROVIDERS: ATTEND Family Medicine
DX: I72.0 Aneurysm of carotid artery (principal)
CPT/HCPCS: 70496

== ENCOUNTER 2023-05-02 18:08 | Observation (INO) | payer MEDICARE, OTHER ==
[~2023-05-02] VITALS: Ht 182 cm; Wt 100.9 kg
[~2023-05-02 18:08] MED LIST changes: -HOLD METFORMIN - RECEIVED CONTRAST 20 ML VIAL IV SCH; -IOHEXOL 350 MG/ML 100 ML (OMNIPAQUE 350) VIAL IV ONE; -NS 100 ML (IVPB) BAG IV ONE
--- NOTE | 2023-05-02 18:44 | ED General ---
General Chief Complaint: Trauma-Non Activation Stated Complaint: FALL Nursing Triage Note: PT TO RM 3 WITH COMPLAINT OF FALL. PT WAS FOUND OUTSIDE SITTING ON THE GROUND BY ANOTHER RESIDENT AT [facility]. STAFF STATES PT WAS HAVING INCREASING CONFUSION, BUT DENIED PAIN. PT HAS ABRAISION TO LEFT FOREARM THAT WAS CLEANED BY STAFF. PT DOES NOT REMEMBER FALLING. Source of Information: Other (SISTERS GIVE ALL INFORMATION. PT IS CONFUSED) History of Present Illness Date Seen by Provider: May 02, 2023 Time Seen by Provider: 18:30 Initial Comments PT ARRIVES VIA POV FROM [facility] WITH SISTERS PT HAD AN UNWITNESSED EVENT AROUND 1720 TODAY--WAS FOUND SITTING ON THE SIDEWALK OUTSIDE OF THE [employer]PLE[employer] BY ANOTHER RESIDENT PT IS CONFUSED, AND IS UNAWARE OF THE EVENT. SISTERS STATE THAT HE HAS HAD 2 STROKES AND HAS A KNOWN BRAIN ANEURYSM--NO NELSON PHUONG. LAST STROKE WAS 01/2023. HE IS ON BLOOD THINNERS, PER SISTERS, BUT OTHER THAT 81 MG ASPIRIN, THERE IS NO LISTED BLOOD THINNERS ON HIS MEDICATION LIST FROM [facility]. SISTERS REPORT THAT HE IS FREQUENTLY CONFUSED, BUT SEEMS MUCH MORE CONFUSED THAN NORMAL TONIGHT. HE HAS HAD RESIDUAL LEFT SIDE WEAKNESS, MEMORY IMPAIRMENT, VISION CHANGES, AND CONFUSION FROM PRIOR STROKES HE HAS HAD MRI'S AND CARDIAC CATH, AND HAD EEG AT [facility] 02/2023 FOR THESE ISSUES--NO SEIZURES, PER SISTERS. HE HAS HAD SIMILAR EVENTS IN THE PAST. HE HAS A LOOP RECORDER IN PLACE HE DENIES ANY PAIN ANYWHERE HE HAS A MINOR ABRASION TO LEFT ELBOW/FOREARM PCP: DR. SEARS Allergies and Home Medications Allergies Coded Allergies: Beta-Adrenergic Agents (Verified Allergy, Unknown, 06/26/22) amoxicillin (Verified Allergy, Unknown, 06/26/22) Patient Home Medication List Home Medication List Reviewed: Yes Aspirin (Aspirin EC) 81 Mg Tablet., 81 MG PO DAILY, (Reported) Entered as Reported by: SOLE MARTE on 06/26/22 145 Atorvastatin Calcium (Atorvastatin Calcium) 40 Mg Tablet, 40 MG PO HS, (Reported) Entered as Reported by: SOLE MARTE on 06/26/22 1452 Cetirizine HCl (Cetirizine HCl) 10 Mg Tablet, 10 MG PO DAILY, (Reported) Entered as Reported by: SOLE MARTE on 06/26/221451 Cyanocobalamin (Vitamin B-12) (B-12) 1,000 Mcg Tablet, 1,000 MCG PO HS, (Reported) Entered as Reported by: SOLE MARTE on 06/26/221451 Melatonin (Melatonin) 5 Mg Tablet, 5 MG PO HS, (Reported) Entered as Reported by: SOLE MARTE on 06/26/221451 Metoprolol Succinate (Metoprolol Succinate) 25 Mg Tab.er.24h, 25 MG PO HS, (Reported) Entered as Reported by: SOLE MARTE on 06/26/221451 Risperidone (Risperidone) 0.5 Mg Tablet, 0.5 MG PO HS, (Reported) Entered as Reported by: SOLE MARTE on 06/26/221451 Sertraline HCl (Sertraline HCl) 100 Mg Tablet, 100 MG PO DAILY, (Reported) Entered as Reported by: SOLE MARTE on 06/26/221451 Tamsulosin HCl (Flomax) 0.4 Mg Cap, 0.4 MG PO HS, (Reported) Entered as Reported by: SOLE MARTE on 06/26/221451 Thiamine HCl (Vitamin B-1) 100 Mg Tablet, 100 MG PO HS, (Reported) Entered as Reported by: SOLE MARTE on 06/26/221451 Valsartan (Valsartan) 160 Mg Tablet, 160 MG PO DAILY, (Reported) Entered as Reported by: OSLE MARTE on 06/26/221451 Review of Systems Review of Systems Constitutional: see HPI Psychiatric/Neurological: See HPI Past Bbfnlcr-Gcykcv-Ovsojj Hx Patient Social History Tobacco Use?: No Use of E-Cig and/or Vaping dev: No Substance use?: No Alcohol Use?: No Pt feels they are or have been: No Immunizations Up To Date First/Initial COVID19 Vaccinat: UNK Second COVID19 Vaccination Prasanna: UNK Third COVID19 Vaccination Date: UNK Seasonal Allergies Seasonal Allergies: Yes Past Medical History Surgery/Hospitalization HX: STROKE JAN 2023 Surgeries: Yes (LOOP RECORDER) Cardiac, Tonsillectomy Currently Using CPAP: No Currently Using BIPAP: No Cardiac: Yes (LOOP RECORDER) Atrial Fibrillation, High Cholesterol, Hypertension Neurological: Yes (CVA X2--2004, 01/2023--LEFT SIDE WEAKNESS, CONFUSION, VISION DISTURBANCE) Dementia, Stroke, TIA Genitourinary: Yes Prostate Problems Gastrointestinal: Yes Gastroesophageal Reflux, Ulcer Musculoskeletal: Yes (LEFT SIDE WEAKNESS) Endocrine: No HEENT: Yes (VISION DISTURBANCE POST CVA) Cancer: No Psychosocial: Yes (DEMENTIA) Sleep Difficulties, Depression Integumentary: No Blood Disorders: No Family Medical History No Pertinent Family Hx Physical Exam Vital Signs Vital Signs - First Documented 05/02/23 05/02/23 18:25 21:23 Temp 36.5 Pulse 72 Resp 16 B/P (MAP) 138/78 (98) Pulse Ox 94 O2 Delivery Room Air Capillary Refill : Less Than 3 Seconds Height, Weight, BMI Height: '" Weight: lbs. oz. kg; 31.00 BMI Method: General Appearance: No Apparent Distress, WD/WN, Other (SMILING, PLEASANTLY CONFUSED, KNOWS NAME AND SISTERS. KNOWS HE IS IN HOSPITAL, CONFUSED TO TIME AND SITUATION AND VERY POOR MEMORY) HEENT: PERRL/EOMI, TMs Normal, Normal ENT Inspection, Pharynx Normal, Moist Mucous Membranes, Other (NO EXTERNAL EVIDENCE OF TRAUMA OR TENDERNESS TO HEAD) Neck: Full Range of Motion, Normal Inspection, Non Tender, Supple Respiratory: Chest Non Tender, Normal Breath Sounds, No Accessory Muscle Use, No Respiratory Distress Cardiovascular: Regular Rate, Rhythm, No Edema, No JVD, Normal Peripheral Pulses Gastrointestinal: Non Tender, Soft Back: No CVA Tenderness, No Vertebral Tenderness Extremity: Normal Capillary Refill, Normal Range of Motion, Non Tender, No Calf Tenderness, No Pedal Edema Neurologic/Psychiatric: Alert, Normal 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 CONFUSED TO PLACE, TIME, SITUATION. ORIENTED ONLY TO SELF AND SISTERS. ) Skin: Normal Color, Warm/Dry, Other (MINOR ABRAION LEFT ELBOW/FOREARM AREA. ) Progress/Results/Core Measures Suspected Sepsis SIRS Temperature: Pulse: 72 Respiratory Rate: 16 Laboratory Tests 05/02/23 18:52: White Blood Count 6.1 Blood Pressure 138 /78 Mean: 98 Laboratory Tests 05/02/23 18:52: Creatinine 1.10, INR Comment 1.0, Platelet Count 184, Total Bilirubin 0.7 Results/Orders Lab Results Laboratory Tests Test 05/02/23 18:52 05/02/23 19:08 05/02/23 21:27 Range/Units White Blood Count 6.1 4.3-11.0 10^3/uL Red Blood Count 4.36 4.30-5.52 10^6/uL Hemoglobin 12.1 L 13.3-17.7 g/dL Hematocrit 37 L 40-54 % Mean Corpuscular Volume 85 80-99 fL Mean Corpuscular Hemoglobin 28 25-34 pg Mean Corpuscular Hemoglobin Concent 33 32-36 g/dL Red Cell Distribution Width 14.1 10.0-14.5 % Platelet Count 184 130-400 10^3/uL Mean Platelet Volume 9.6 9.0-12.2 fL Immature Granulocyte % (Auto) 1 % Neutrophils (%) (Auto) 79 H 42-75 % Lymphocytes (%) (Auto) 11 L 12-44 % Monocytes (%) (Auto) 7 0-12 % Eosinophils (%) (Auto) 2 0-10 % Basophils (%) (Auto) 1 0-10 % Neutrophils # (Auto) 4.8 1.8-7.8 10^3/uL Lymphocytes # (Auto) 0.7 L 1.0-4.0 10^3/uL Monocytes # (Auto) 0.4 0.0-1.0 10^3/uL Eosinophils # (Auto) 0.1 0.0-0.3 10^3/uL Basophils # (Auto) 0.0 0.0-0.1 10^3/uL Immature Granulocyte # (Auto) 0.1 0.0-0.1 10^3/uL Prothrombin Time 13.3 12.2-14.7 SEC INR Comment 1.0 0.8-1.4 Activated Partial Thromboplast Time 28 24-35 SEC Sodium Level 133 L 135-145 MMOL/L Potassium Level 4.0 3.6-5.0 MMOL/L Chloride Level 101 98-107 MMOL/L Carbon Dioxide Level 24 21-32 MMOL/L Anion Gap 8 5-14 MMOL/L Blood Urea Nitrogen 16 7-18 MG/DL Creatinine 1.10 0.60-1.30 MG/DL Estimat Glomerular Filtration Rate 71 BUN/Creatinine Ratio 15 Glucose Level 121 H 70-105 MG/DL Glucometer 126 H 70-110 MG/DL Calcium Level 9.0 8.5-10.1 MG/DL Corrected Calcium 9.0 8.5-10.1 MG/DL Magnesium Level 1.9 1.6-2.4 MG/DL Total Bilirubin 0.7 0.1-1.0 MG/DL Aspartate Amino Transf (AST/SGOT) 16 5-34 U/L Alanine Aminotransferase (ALT/SGPT) 16 0-55 U/L Alkaline Phosphatase 89 40-136 U/L Troponin I 0.057 H 0.276 H <0.028 NG/ML Total Protein 6.3 L 6.4-8.2 GM/DL Albumin 4.0 3.2-4.5 GM/DL Urine Color YELLOW Urine Clarity SL CLOUDY Urine pH 6.0 5-9 Urine Specific [place] >=1.030 1.016-1.022 Urine Protein 1+ H NEGATIVE Urine Glucose (UA) NEGATIVE NEGATIVE Urine Ketones NEGATIVE NEGATIVE Urine Nitrite NEGATIVE NEGATIVE Urine Bilirubin NEGATIVE NEGATIVE Urine Urobilinogen 0.2 < = 1.0 MG/DL Urine Leukocyte Esterase NEGATIVE NEGATIVE Urine RBC (Auto) NEGATIVE NEGATIVE Urine RBC 0-2 /HPF Urine WBC 0-2 /HPF Urine Squamous Epithelial Cells NONE /HPF Urine Crystals PRESENT H /LPF Urine Amorphous Sediment MOD LORA URATES H /LPF Urine Bacteria TRACE /HPF Urine Casts PRESENT /LPF Urine Hyaline Casts 5-10 H /LPF Urine Mucus LARGE H /LPF Urine Culture Indicated NO My Orders Orders - CLEMENTINA NEVAREZ DO Ed Iv/Invasive Line Start (05/02/23 18:36) Monitor-Rhythm Ecg Trace Only (05/02/23 18:36) Ct Head/Cervical Spine Wo (05/02/23 18:36) Chest 1 View, Ap/Pa Only (05/02/23 18:36) Elbow, Left, 3 Views (05/02/23 18:36) Pelvis 1 To 2 Views (05/02/23 18:36) Cbc With Automated Diff (05/02/23 18:36) Comprehensive Metabolic Panel (05/02/23 18:36) Magnesium (05/02/23 18:36) Protime With Inr (05/02/23 18:36) Partial Thromboplastin Time (05/02/23 18:36) Ua Culture If Indicated (05/02/23 18:36) Troponin I [place] (05/02/23 18:36) Accucheck Stat ONCE (05/02/23 18:36) Ekg Tracing (05/02/23 18:36) Troponin I [place] (05/02/23 21:12) Ekg Tracing (05/02/23 21:12) Code/Resuscitation (05/02/23 21:16) Ed Admission (Communication) (05/02/23 21:16) Vital Signs/I&O 05/02/23 05/02/23 18:25 21:23 Temp 36.5 Pulse 72 73 Resp 16 22 B/P (MAP) 138/78 (98) 158/87 Pulse Ox 94 95 O2 Delivery Room Air Room Air Capillary Refill : Less Than 3 Seconds Blood Pressure Mean: 98 Progress Note : Progress Note NO DETERIORATION IN PT'S CONDITION DURING ER STAY VITALS STABLE LABS INCLUDING CBC, CMP, PT/PTT, UA, TROPONIN ORDERED TROPONIN IS ELEVATED AT 0.057, REPEAT TROPONIN 0.276. OTHER LAB FAIRLY UNREMARKABLE NO CHANGE IN EKG PT HAS HAD NO ARRHYTHMIAS DURING ER STAY NO COMPLAINTS OF ANY KIND DURING ER STAY THERE ARE NO FOCAL DEFICITS ON EXAM, AND PT IS ABLE TO FOLLOW SIMPLE COMMANDS, BUT REMAINS CONFUSED TO PLACE, TIME, SITUATION AND EVENTS. ORIENTED ONLY TO SELF AND SISTERS PT ARRIVES WITH ASSISTED LIVING PAPERWORK, INCLUDING HIS LIVING WILL/ADVANCE DIRECTIVES INDICATING THAT HE IS DNR. DISCUSSED TEST RESULTS WITH SISTERS AND PT, AND NEED FOR ADMIT AND THEY AGREE. ECG Initial ECG Impression Date: May 02, 2023 Initial ECG Impression Time: 18:50 Initial ECG Rate: 72 Initial ECG Rhythm: Normal Sinus Initial ECG Intervals: Normal Initial ECG Impression: Normal Comment INTERPRETED BY ME EKG : EKG Time: 21:33 Rate: 72 Rhythm: Normal Sinus Intervals: Normal ECG Comparisson: Unchanged ECG Impression: Normal Comment INTERPRETED BY ME Diagnostic Imaging Comments PER RADIOLOGIST REPORTS AT 1954: CXR-- FINDINGS: Heart size and mediastinal contours are unchanged. There is no identified pneumothorax. There is no large pleural effusion. There is no identified focal airspace consolidation. IMPRESSION: No identified acute cardiopulmonary abnormality. LEFT ELBOW XRAYS: FINDINGS: The left elbow is not dislocated. There is no elbow joint effusion. There is no identified acute fracture. The joint spaces are well preserved. There is a punctate focus of probable film artifact. IMPRESSION: No identified acute bony abnormality of the left elbow. PELVIS: FINDINGS: The pubic symphysis and sacroiliac joints are unremarkable in alignment. The hips are not obviously dislocated. There are vascular calcifications. There is no identified acute bony abnormality. There is scattered degenerative type enthesopathy. There are degenerative changes of the lower lumbar spine. IMPRESSION: No identified acute bony abnormality of the pelvis. CT HEAD/CERVICAL SPINE--PER RADIOLOGIST REPORT AT 2102 FINDINGS: There is no identified skull fracture. There is encephalomalacia in the right occipital lobe. There is also low-attenuation in the inferior aspect of the right parietal lobe which may reflect encephalomalacia and/or gliosis. There is mild generalized cerebral volume loss. There is no identified abnormal extra-axial fluid collection. There is no evidence of acute intracranial hemorrhage. There is a calcification of the left medial frontal lobe on axial image 37. There is no mass effect or midline shift. Calcification is unchanged since at least February 19, 2023. The visualized portions of the paranasal sinuses, mastoid air cells and middle ears are well aerated. There is no identified facet joint subluxation or dislocation. There are multilevel facet degenerative changes of the cervical spine. There are multilevel disc degenerative changes of the cervical spine with multilevel posterior disc osteophyte complexes. There is no asymmetric widening of the cervical disc spaces. There is no prominent prevertebral soft tissue swelling. CT is limited for assessment of disc pathology as well as additional non-bony causes of pathology in the spinal canal. There is no identified acute fracture of the cervical spine. The visualized portions of the lungs are clear. There are atherosclerotic calcifications. There are bilateral carotid vascular calcifications. IMPRESSION: 1. No identified acute intracranial abnormality. 2. Encephalomalacia involving the right occipital lobe and inferior aspect of the parietal lobe. 3. Mild cerebral volume loss. 4. No acute fracture of the cervical spine. 5. Multilevel advanced disc and facet degenerative changes of the cervical spine. Reviewed: Reviewed by Me Departure Communication (Admissions) 2107--SPOKE WITH DR. FAUST, HOSPITALIST, ACCEPTS PT FOR ADMIT. SHE WILL DO ADMIT ORDERS. Impression Primary Impression: UNWITNESSED FALL VS SYNCOPE Additional Impressions: Altered mental status Elevated troponin HX OF CVA Dementia HTN (hypertension) Disposition: ADMITTED INPATIENT Condition: Stable Admissions Decision to Admit Reason: Admit from ER (General) Decision to Admit/Date: May 02, 2023 Time/Decision to Admit Time: 21:10 Departure-Patient Inst. Referrals: REGINA SEARS DO (PCP/Family) Primary Care Physician CLEMENTINA NEVAREZ DO May 02, 2023 18:44
[2023-05-02 18:58] LABS: BASOPHILS % (AUTO) 1 % (0-10); EOSINOPHILS # (AUTO) 0.1 10^3/uL (0.0-0.3); EOSINOPHILS % (AUTO) 2 % (0-10); HEMATOCRIT 37 % (40-54); HEMOGLOBIN 12.1 g/dL (13.3-17.7); LYMPHOCYTES # (AUTO) 0.7 10^3/uL (1.0-4.0); LYMPHOCYTES % (AUTO) 11 % (12-44); MEAN CORPUSCULAR HEMOGLOBIN 28 pg (25-34); MEAN CORPUSCULAR HGB CONC 33 g/dL (32-36); MEAN CORPUSCULAR VOLUME 85 fL (80-99); MEAN PLATELET VOLUME 9.6 fL (9.0-12.2); MONOCYTES # (AUTO) 0.4 10^3/uL (0.0-1.0); MONOCYTES % (AUTO) 7 % (0-12); NEUTROPHILS # (AUTO) 4.8 10^3/uL (1.8-7.8); NEUTROPHILS % (AUTO) 79 % (42-75); PLATELET COUNT 184 10^3/uL (130-400); WHITE BLOOD COUNT 6.1 10^3/uL (4.3-11.0)
[2023-05-02 19:12] LABS: PROTHROMBIN TIME PATIENT 13.3 SEC (12.2-14.7)
[2023-05-02 19:14] LABS: BILIRUBIN,URINE NEGATIVE (NEGATIVE); CLARITY,URINE SL CLOUDY; COLOR,URINE YELLOW; GLUCOSE, URINE (UA) NEGATIVE (NEGATIVE); KETONES,URINE NEGATIVE (NEGATIVE); LEUKOCYTE ESTERASE ,URINE NEGATIVE (NEGATIVE); NITRITE,URINE NEGATIVE (NEGATIVE); PROTEIN,URINE 1+ (NEGATIVE)
[2023-05-02 19:18] LABS: BILIRUBIN,TOTAL 0.7 MG/DL (0.1-1.0); CREATININE SERUM 1.1 MG/DL (0.60-1.30); MAGNESIUM 1.9 MG/DL (1.6-2.4); TOTAL PROTEIN 6.3 GM/DL (6.4-8.2)
[2023-05-02 19:24] LABS: AMORPHOUS SEDIMENT,UR MOD AMOR URATES /LPF; BACTERIA,URINE TRACE /HPF; RBC,URINE 0-2 /HPF; WBC,URINE 0-2 /HPF
--- NOTE | 2023-05-02 19:39 | Diagnostic Imaging Report ---
EXAMINATION: Pelvis, single view. COMPARISON: None. HISTORY: 72-year-old male, pelvic pain. Fall. FINDINGS: The pubic symphysis and sacroiliac joints are unremarkable in alignment. The hips are not obviously dislocated. There are vascular calcifications. There is no identified acute bony abnormality. There is scattered degenerative type enthesopathy. There are degenerative changes of the lower lumbar spine. IMPRESSION: No identified acute bony abnormality of the pelvis. Dictated by: Dictated on workstation # [id number]
--- NOTE | 2023-05-02 19:50 | Diagnostic Imaging Report ---
EXAMINATION: Chest radiograph, portable AP view. DATE: 05/02/2023 7:34 PM INDICATION: 72-year-old male, fall. Chest pain. COMPARISON: April 24, 2022. FINDINGS: Heart size and mediastinal contours are unchanged. There is no identified pneumothorax. There is no large pleural effusion. There is no identified focal airspace consolidation. IMPRESSION: No identified acute cardiopulmonary abnormality. Dictated by: Dictated on workstation # [id number]
--- NOTE | 2023-05-02 19:51 | Diagnostic Imaging Report ---
EXAMINATION: Left elbow radiographs, 3 views. COMPARISON: None. HISTORY: 72-year-old male, left elbow pain after fall. FINDINGS: The left elbow is not dislocated. There is no elbow joint effusion. There is no identified acute fracture. The joint spaces are well preserved. There is a punctate focus of probable film artifact. IMPRESSION: No identified acute bony abnormality of the left elbow. Dictated by: Dictated on workstation # [id number]
--- NOTE | 2023-05-02 20:57 | Diagnostic Imaging Report ---
PROCEDURE: CT head and CT cervical spine without contrast. TECHNIQUE: Multiple contiguous axial images were obtained through the brain and cervical spine without the use of intravenous contrast. Sagittal and coronal reformations through the cervical spine were then performed. Auto Exposure Controls were utilized during the CT exam to meet ALARA standards for radiation dose reduction. DATE: May 02, 2023. COMPARISON: head January 27, 2023. CT angiography head February 19, 2023. INDICATION: 72-year-old male, fall. Altered mental status. Head and neck pain. FINDINGS: There is no identified skull fracture. There is encephalomalacia in the right occipital lobe. There is also low-attenuation in the inferior aspect of the right parietal lobe which may reflect encephalomalacia and/or gliosis. There is mild generalized cerebral volume loss. There is no identified abnormal extra-axial fluid collection. There is no evidence of acute intracranial hemorrhage. There is a calcification of the left medial frontal lobe on axial image 37. There is no mass effect or midline shift. Calcification is unchanged since at least February 19, 2023. The visualized portions of the paranasal sinuses, mastoid air cells and middle ears are well aerated. There is no identified facet joint subluxation or dislocation. There are multilevel facet degenerative changes of the cervical spine. There are multilevel disc degenerative changes of the cervical spine with multilevel posterior disc osteophyte complexes. There is no asymmetric widening of the cervical disc spaces. There is no prominent prevertebral soft tissue swelling. CT is limited for assessment of disc pathology as well as additional non-bony causes of pathology in the spinal canal. There is no identified acute fracture of the cervical spine. The visualized portions of the lungs are clear. There are atherosclerotic calcifications. There are bilateral carotid vascular calcifications. IMPRESSION: 1. No identified acute intracranial abnormality. 2. Encephalomalacia involving the right occipital lobe and inferior aspect of the parietal lobe. 3. Mild cerebral volume loss. 4. No acute fracture of the cervical spine. 5. Multilevel advanced disc and facet degenerative changes of the cervical spine. Dictated by: Dictated on workstation # [id number]
[2023-05-02] MEDS ORDERED: LORazepam INJ 2 MG/ML (ATIVAN) VIAL IVP PRN (21:45)
[2023-05-02] MEDS ORDERED: BISACODYL 10 MG SUPP (DULCOLAX) PR PRN (21:45)
[2023-05-02] MEDS ORDERED: LORazepam 0.5 MG (ATIVAN) TABLET PO PRN (21:45)
[2023-05-02] MEDS ORDERED: ACETAMINOPHEN 325 MG TABLET PO PRN (21:45)
[2023-05-02] MEDS ORDERED: ANTACID SUSP 30 ML UDC (MYLANTA) PO PRN (21:45)
[2023-05-02] MEDS ORDERED: diphenhydrAMINE 50 MG/ML INJ (BENADRYL) IVP PRN (21:45)
[2023-05-02] MEDS ORDERED: MELATONIN 3 MG TABLET PO PRN (21:45)
[2023-05-02] MEDS ORDERED: MILK OF MAGNESIA 400 MG/5 ML 30 ML UDC PO PRN (21:45)
[2023-05-02] MEDS ORDERED: ONDANSETRON 4 MG/2 ML (SDV) Z0FRAN IV PRN (21:45)
[2023-05-02] MEDS ORDERED: diphenhydrAMINE 25 MG TAB (BENADRYL) PO PRN (21:45)
[2023-05-02] MEDS ORDERED: ONDANSETRON 4 MG (ZOFRAN) ORAL DISSOLVE TAB PO PRN (21:45)
[2023-05-02] MEDS ORDERED: HYDROmorphone 2 MG/ML VIAL (DILAUDID) IV PRN (21:45)
[2023-05-02] MEDS ORDERED: NS IV 1000 ML 1,000 ML IV SCH (21:45)
[2023-05-02] MEDS ORDERED: polyethylene glycoL POWDER 17 GM (MIRALAX) PACK PO PRN (21:45)
[2023-05-02] MEDS ORDERED: LACTULOSE SYRUP 10GM/15ML (ENULOSE) 30ML UDC PO PRN (21:45)
[2023-05-02] MEDS ORDERED: CALCIUM CARBONATE 500 MG (TUMS) TAB.CHEW PO PRN (21:45)
[2023-05-02 21:46] VITALS: BP 153/78
[2023-05-02 22:17] VITALS: BP 138/78
[2023-05-02] MEDS ORDERED: risperiDONE 0.5 MG (RisperDAL) TABLET ONE (23:02)
[2023-05-03] VITALS (16 sets, daily range): BP systolic 105–147; BP diastolic 55–84
--- NOTE | 2023-05-03 05:35 | History & Physical ---
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 He does have a history of dementia and prior stroke. He was assessed and found to have elevated troponin. After more GI evaluated him to have an NSTEMI so he was taken to cardiac catheterization lab and patient was noted to have coronary stenosis collaterals supplying so no intervention initiated. Risk of additional anticoagulation and aggressive antiplatelet thinning medication put him at too high of risk. Sister gives most of the details. PT was consulted and found him to be back to baseline. Source: patient, family, RN/MD, old records Exam Limitations: clinical condition Date Seen 05/03/23 Time Seen by a Provider: 11:00 Attending Physician Arianna Marino DO PCP Admitting Physician: Mary Bermudez DO Attending Physician: Mary Bermudez DO Referring Physician Date of Admission May 02, 2023 at 21:28 Home Medications & Allergies Home Medications Reviewed patient Home Medication Reconciliation performed by pharmacy medication reconciliations vending technician and/or nursing. Patients Allergies have been reviewed. Allergies Allergies Coded Allergies Beta-Adrenergic Agents (Verified Allergy, Unknown, 06/26/22) amoxicillin (Verified Allergy, Unknown, 06/26/22) Past Dmcdcde-Lxvyhw-Uwvoyd Hx Past Med/Social Hx: Reviewed Nursing Past Med/Soc Hx, Reviewed and Corrections made Patient Social History Marrital Status: single Employed/Student: retired Alcohol Use: Denies Use Smoking Status: Former Smoker Past Medical History Surgeries: Cardiac, Tonsillectomy Currently Using CPAP: No Currently Using BIPAP: No Cardiac: Atrial Fibrillation, Hypertension Neurological: Dementia, Stroke, TIA Gastrointestinal: Gastroesophageal Reflux, Ulcer Family History No Pertinent Family Hx Review of Systems Constitutional: see HPI, malaise, weakness EENTM: no symptoms reported Respiratory: no symptoms reported Cardiovascular: no symptoms reported Gastrointestinal: no symptoms reported Genitourinary: no symptoms reported Musculoskeletal: no symptoms reported Skin: no symptoms reported Psychiatric/Neurological: Anxiety, Depressed All Other Systems Reviewed Negative Unless Noted: Yes Physical Exam Physical Exam Vital Signs Vital Signs - First Documented 05/02/23 05/02/23 05/02/23 05/03/23 18:25 21:23 22:17 02:58 Temp 36.5 Pulse 72 Resp 16 B/P (MAP) 138/78 (98) Pulse Ox 94 O2 Delivery Room Air O2 Flow Rate 0.00 FiO2 21 Capillary Refill : Less Than 3 Seconds Height, Weight, BMI Height: '" Weight: lbs. oz. kg; 30.46 BMI Method: General Appearance: No Apparent Distress, WD/WN, Chronically ill, Other (SMILI NG, PLEASANTLY CONFUSED, KNOWS NAME AND SISTERS. 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 ) Skin: Normal Color, Warm/Dry, Other (MINOR ABRAION LEFT ELBOW/FOREARM AREA. ) Results Results/Procedures Labs Laboratory Tests 05/02/23 18:52 05/03/23 05:35 Patient resulted labs reviewed. Assessment/Plan Admission Diagnosis Assessment: Found down on sidewalk without injury Status postcardiac catheterization without intervention due to collateral supply Dementia Prior stroke Atrial fibrillation Multiple falls in the past Plan: Supportive care PT Discharge likely back to baseline after cardiac catheterization sedation dissipated Admission Status: Observation Clinical Quality Measures DVT/VTE Risk/Contraindication: Contraindications-Pharm: Other *list below* Other: aneurysm MARY BERMUDEZ DO May 03, 2023 05:35
[2023-05-03 05:48] LABS: BASOPHILS % (AUTO) 0 % (0-10); EOSINOPHILS % (AUTO) 1 % (0-10); HEMATOCRIT 35 % (40-54); HEMOGLOBIN 11.9 g/dL (13.3-17.7); LYMPHOCYTES % (AUTO) 11 % (12-44); MEAN CORPUSCULAR HEMOGLOBIN 28 pg (25-34); MEAN CORPUSCULAR HGB CONC 34 g/dL (32-36); MEAN CORPUSCULAR VOLUME 83 fL (80-99); MEAN PLATELET VOLUME 9.5 fL (9.0-12.2); MONOCYTES # (AUTO) 0.6 10^3/uL (0.0-1.0); MONOCYTES % (AUTO) 7 % (0-12); NEUTROPHILS % (AUTO) 80 % (42-75); PLATELET COUNT 172 10^3/uL (130-400); WHITE BLOOD COUNT 8.7 10^3/uL (4.3-11.0)
[2023-05-03 05:56] LABS: ALBUMIN 3.8 GM/DL (3.2-4.5)
[2023-05-03 05:57] LABS: CALCIUM 8.7 MG/DL (8.5-10.1)
[2023-05-03 06:00] LABS: BILIRUBIN,TOTAL 1.1 MG/DL (0.1-1.0)
[2023-05-03 06:02] LABS: CREATININE SERUM 0.85 MG/DL (0.60-1.30)
[2023-05-03] MEDS ORDERED: NS 100 ML (IVPB) BAG IV SCH (09:00)
[2023-05-03] MEDS ORDERED: SENNOSIDES 8.6 MG (SENOKOT) TAB PO SCH (09:00)
[2023-05-03] MEDS ORDERED: DOCUSATE SODIUM 100 MG (COLACE) CAP PO SCH (09:00)
--- NOTE | 2023-05-03 09:25 | Consultation-Cardiology ---
HPI-Cardiology Cardiology Consultation Date of Consultation 05/03/23 Date of Admission Time Seen by Provider: 09:19 Indication: Elevated troponin level HPI 72-year-old gentleman with history of CVA and dementia, he is innocuously. He became confused and lethargic, was sitting on the side of the street. He has known history of brain aneurysm. Had history of residual weakness from his stroke. Denied any chest pain or palpitation, noted to have elevation in troponin level. On my evaluation he was laying comfortably in bed, in good spirit. No active pain, no shortness of breath. Home Medications & Allergies Allergies: Coded Allergies: Beta-Adrenergic Agents (Verified Allergy, Unknown, 06/26/22) amoxicillin (Verified Allergy, Unknown, 06/26/22) Home Medication List Reviewed: Yes QHS-Dngvct-Hihojj Hx Patient Social History Marital Status: Employed/Student: retired Smoking Status: Former Smoker Alcohol Use?: No Past Medical History Discussed below Family Medical History Significant Family History: No Pertinent Family Hx Review of Systems-General Review of Systems Constitutional: see HPI EENTM: see HPI, no symptoms reported Respiratory: no symptoms reported, see HPI Cardiovascular: see HPI Gastrointestinal: no symptoms reported, see HPI Genitourinary: no symptoms reported, see HPI Musculoskeletal: no symptoms reported, see HPI Skin: no symptoms reported, see HPI Psychiatric/Neurological: See HPI Reviewed Test Results Reviewed Test Results Lab Laboratory Tests Test 05/02/23 18:52 05/02/23 19:08 05/02/23 21:27 05/03/23 05:35 Range/Units White Blood Count 6.1 8.7 4.3-11.0 10^3/uL Red Blood Count 4.36 4.26 L 4.30-5.52 10^6/uL Hemoglobin 12.1 L 11.9 L 13.3-17.7 g/dL Hematocrit 37 L 35 L 40-54 % Mean Corpuscular Volume 85 83 80-99 fL Mean Corpuscular Hemoglobin 28 28 25-34 pg Mean Corpuscular Hemoglobin Concent 33 34 32-36 g/dL Red Cell Distribution Width 14.1 13.9 10.0-14.5 % Platelet Count 184 172 130-400 10^3/uL Mean Platelet Volume 9.6 9.5 9.0-12.2 fL Immature Granulocyte % (Auto) 1 1 % Neutrophils (%) (Auto) 79 H 80 H 42-75 % Lymphocytes (%) (Auto) 11 L 11 L 12-44 % Monocytes (%) (Auto) 7 7 0-12 % Eosinophils (%) (Auto) 2 1 0-10 % Basophils (%) (Auto) 1 0 0-10 % Neutrophils # (Auto) 4.8 7.0 1.8-7.8 10^3/uL Lymphocytes # (Auto) 0.7 L 1.0 1.0-4.0 10^3/uL Monocytes # (Auto) 0.4 0.6 0.0-1.0 10^3/uL Eosinophils # (Auto) 0.1 0.0 0.0-0.3 10^3/uL Basophils # (Auto) 0.0 0.0 0.0-0.1 10^3/uL Immature Granulocyte # (Auto) 0.1 0.0 0.0-0.1 10^3/uL Prothrombin Time 13.3 12.2-14.7 SEC INR Comment 1.0 0.8-1.4 Activated Partial Thromboplast Time 28 24-35 SEC Sodium Level 133 L 132 L 135-145 MMOL/L Potassium Level 4.0 4.0 3.6-5.0 MMOL/L Chloride Level 101 102 98-107 MMOL/L Carbon Dioxide Level 24 24 21-32 MMOL/L Anion Gap 8 6 5-14 MMOL/L Blood Urea Nitrogen 16 12 7-18 MG/DL Creatinine 1.10 0.85 0.60-1.30 MG/DL Estimat Glomerular Filtration Rate 71 92 BUN/Creatinine Ratio 15 14 Glucose Level 121 H 110 H 70-105 MG/DL Glucometer 126 H 70-110 MG/DL Calcium Level 9.0 8.7 8.5-10.1 MG/DL Corrected Calcium 9.0 8.9 8.5-10.1 MG/DL Magnesium Level 1.9 1.6-2.4 MG/DL Total Bilirubin 0.7 1.1 H 0.1-1.0 MG/DL Aspartate Amino Transf (AST/SGOT) 16 16 5-34 U/L Alanine Aminotransferase (ALT/SGPT) 16 16 0-55 U/L Alkaline Phosphatase 89 69 40-136 U/L Troponin I 0.057 H 0.276 H <0.028 NG/ML Total Protein 6.3 L 6.0 L 6.4-8.2 GM/DL Albumin 4.0 3.8 3.2-4.5 GM/DL Urine Color YELLOW Urine Clarity SL CLOUDY Urine pH 6.0 5-9 Urine Specific [place] >=1.030 1.016-1.022 Urine Protein 1+ H NEGATIVE Urine Glucose (UA) NEGATIVE NEGATIVE Urine Ketones NEGATIVE NEGATIVE Urine Nitrite NEGATIVE NEGATIVE Urine Bilirubin NEGATIVE NEGATIVE Urine Urobilinogen 0.2 < = 1.0 MG/DL Urine Leukocyte Esterase NEGATIVE NEGATIVE Urine RBC (Auto) NEGATIVE NEGATIVE Urine RBC 0-2 /HPF Urine WBC 0-2 /HPF Urine Squamous Epithelial Cells NONE /HPF Urine Crystals PRESENT H /LPF Urine Amorphous Sediment MOD LORA URATES H /LPF Urine Bacteria TRACE /HPF Urine Casts PRESENT /LPF Urine Hyaline Casts 5-10 H /LPF Urine Mucus LARGE H /LPF Urine Culture Indicated NO Physical Exam Physical Exam Vital Signs Vital Signs - First Documented 05/02/23 05/02/23 05/02/23 05/03/23 18:25 21:23 22:17 02:58 Temp 36.5 Pulse 72 Resp 16 B/P (MAP) 138/78 (98) Pulse Ox 94 O2 Delivery Room Air O2 Flow Rate 0.00 FiO2 21 Capillary Refill : Less Than 3 Seconds Height, Weight, BMI Height: '" Weight: lbs. oz. kg; 30.46 BMI Method: General Appearance: No Apparent Distress, WD/WN, Other (SMILING, PLEASANTLY CONFUSED, KNOWS NAME AND SISTERS. KNOWS HE IS IN HOSPITAL, CONFUSED TO TIME AND SITUATION AND VERY POOR MEMORY) HEENT: PERRL/EOMI, TMs Normal, Normal ENT Inspection, Pharynx Normal, Moist Mucous Membranes, Other (NO EXTERNAL EVIDENCE OF TRAUMA OR TENDERNESS TO HEAD) Neck: Full Range of Motion, Normal Inspection, Non Tender, Supple Respiratory: Chest Non Tender, Normal Breath Sounds, No Accessory Muscle Use, No Respiratory Distress Cardiovascular: Regular Rate, Rhythm, No Edema, No JVD, Normal Peripheral Pulses Gastrointestinal: Non Tender, Soft Back: No CVA Tenderness, No Vertebral Tenderness Extremity: Normal Capillary Refill, Normal Range of Motion, Non Tender, No Calf Tenderness, No Pedal Edema Neurologic/Psychiatric: Alert, Normal Mood/Affect, ethnoarchaeologist II-XII Norm as Tested, Other (SLIGHT LEFT SIDE WEAKNESS, MOSTLY IN LEFT LEG--NORMAL BASELINE. CONFUSED TO PLACE, TIME, SITUATION. ORIENTED ONLY TO SELF AND SISTERS. ) Skin: Normal Color, Warm/Dry, Other (MINOR ABRAION LEFT ELBOW/FOREARM AREA. ) A/P-Cardiology Admission Diagnosis Non-ST elevation myocardial infarction Change in mental status Hypertension Hyperlipidemia Assessment/Plan Non-ST elevation myocardial infarction, acute elevation in troponin level Asymptomatic No acute EKG changes Multiple risk factors for coronary artery disease, I am planning to proceed with cardiac catheterization Acute change in mental status with confusion and weakness. No focal deficit He has some residual left-sided weakness from the past. Probably another TIA. I will interrogate his loop monitor. History off recurrent CVA. Had the first stroke in 2004, recent stroke in January 2022. Initial of stroke affected his vision, had multiple episodes of change in mental status. Stroke affected his memory, he was told that it affected his left temporal lobe. So far all his strokes are cryptogenic, no confirmed cause of his stroke. It was suspected to be secondary to hypertension. Had multiple TIA, last episode occurred on December 13, 2022 No arrhythmia was detected on the loop MRI of the brain was done on January 01, 2023, reported as no evidence of acute intracranial process. There is lobulated flow void area seen near the right MCA, recommend evaluating CT angiogram to rule out aneurysm, chronic cerebral infarct involving the medial right temporal lobe and right occipital region, chronic small vessel ischemic disease noted. Status post loop implant done on June 28, 2022 due to the recurrent TIA. I will interrogate his loop monitor 48 hour holter monitor done April 2022 showing SR with PAC, PVCs 2D Echo done April 2022 with normal LV size, EF 50-55%. Grade 1 diastolic dysfunction. Mildly dilated left atrium, mild MR, AR. PA 30-35mmHg. I will repeat 2D echo Hyperlipidemia, maintained on Lipitor 40 mg daily I will evaluate lipid profile and metabolic profile Diabetes mellitus, followed and managed by primary care physician Labile hypertension. Maintained on valsartan 160 mg daily, Toprol XL 25mg daily Poor control, I will increase valsartan to 320 mg daily and evaluate tolerance and response Nonobstructive carotid artery stenosis per carotid duplex done April 2022 Clinical Quality Measures DVT/VTE Risk/Contraindication: Contraindications-Pharm: Other *list below* Other: aneurysm FERNANDA LAW MD May 03, 2023 09:25
--- NOTE | 2023-05-03 09:26 | Cardiac Procedure Note-CS/ASA ---
Pre-Procedure Note Pre-Op Procedure Note Date of Available H&P: May 03, 2023 Date H&P Reviewed: May 03, 2023 Time H&P Reviewed: : History & Physical: H&P Reviewed, Patient Examed, No changes noted Pre-Operative Diagnosis: CAD Moderate Sedation PreProcedure Time 09: ASA Score 3 Airway Lungs Heart ASA score ASA 1: a normal healthy patient ASA 2: a patient with a mild systemic disease (mid diabetes, controlled hypertension, obesity ASA 3: a patient with a severe systemic disease that limits activity (angina, COPD, prior Myocardial infarction) ASA 4: a patient with an incapacitating disease that is a constant threat to life (CHF, renal failure) ASA 5: a moribund patient not expected to survive 24 hrs. (ruptured aneurysm) ASA 6: a declared brain- patient whose organs are being harvested. For emergent operations, add the letter E after the classification Mallampati Classification Grade 3 Sedation Plan Analgesia, Amnesia, Plan communicated to team members, Discussed options with patient/fam, Discussed risks with patient/fam The patient is an appropriate candidate to undergo the planned procedure, sedation, and anesthesia. The patient immediately re-assessed prior to indication. FERNANDA LAW MD May 03, 2023 09:26
[2023-05-03] MEDS ORDERED: ACET325T38 PO (09:48)
[2023-05-03] MEDS ORDERED: CALC-694 PO (09:48)
[2023-05-03] MEDS ORDERED: FLUT9.9S NSEACH (09:48)
[2023-05-03] MEDS ORDERED: VALS320T15 PO (09:48)
[2023-05-03] MEDS ORDERED: DONE10TA41 PO (09:48)
[2023-05-03] MEDS ORDERED: MAGN400T39 PO (09:50)
[2023-05-03] MEDS ORDERED: HEParin (CATH LAB) 0 ML IV ONE (10:42)
[2023-05-03] MEDS ORDERED: LIDOCAINE 1% INJ 20 ML VIAL ONE (10:42)
[2023-05-03] MEDS ORDERED: fentaNYL INJ 100 MCG/2 ML AMP ONE (11:03)
[2023-05-03] MEDS ORDERED: VERAPAMIL 5 MG/2 ML (CALAN) VIAL IV ONE (11:03)
[2023-05-03] MEDS ORDERED: HEParin (CATH LAB) 2,000 ML IV ONE (11:04)
[2023-05-03] MEDS ORDERED: MIDAZOLAM 5 MG/5 ML (VERSED) VIAL ONE (11:04)
[2023-05-03] MEDS ORDERED: NITRO DRIP 25000 MCG/D5W 250 ML IV ONE (11:04)
[2023-05-03] MEDS ORDERED: HEParin 1000 UNIT/ML (10ML VIAL) FOR BOLUS ONE (11:04)
[2023-05-03] MEDS ORDERED: NS IV 1000 ML 1,000 ML ONE (11:05)
--- NOTE | 2023-05-03 11:16 | Physical Therapy Evaluation ---
PT Evaluation-General Medical Diagnosis Admission Date May 02, 2023 at 21:28 Medical Diagnosis: AMS Onset Date: May 02, 2023 Therapy Diagnosis Therapy Diagnosis: debility Precautions Precautions/Isolations: Fall Prevention, Standard Precautions Weight Bear Status Right Lower Extremity: Right Weight Bearing/Tolerated Left Lower Extremity: Left Weight Bearing/Tolerated Referral Physician: Lara Reason for Referral: Evaluation/Treatment Medical History Pertinent Medical History: Atrial Fib, CVA (left hemiparesis), Dementia, HTN Additional Medical History vision disturbance Current History ER via family due to being found on the ground outside of [place] Reviewed History: Yes Social History Home: Assisted Living Prior Prior Level of Function SCALE: Activities may be completed with or without assistive devices. 0-Hlqrnlcspw-luzsknj completes the activity by him/herself with no assistance from a helper. 5-Set-up or Clean-up Assistance-helper sets up or cleans up; patient completes activity. [place] assists only prior to or following the activity. 4-Supervision or Touching Assistance-helper provides verbal cues and/or touching/steadying and/or contact guard assistance as patient completes activity. Assistance may be provided throughout the activity or intermittently. 3-Partial/Moderate Assistance-helper does LESS THAN HALF the effort. [place] lifts, holds or supports trunk or limbs, but provides less than half the effort. 2-Substantial/Maximal Assistance-helper does MORE THAN HALF the effort. [place] lifts or holds trunk or limbs and provides more than half the effort. 4-Zhxilwgms-lvqpcl does ALL the effort. Patient does none of the effort to complete the activity. Or, the assistance of 2 or more helpers is required for the patient to complete the activity. If activity was not attempted, code reason: 7-Patient Refused. 9-Not Applicable-not attempted and the patient did not perform the activity before the current illness, exacerbation or injury. 10-Not Attempted due to Environmental Limitations-(lack of equipment, weather restraints, etc.). 88-Not Attempted due to Medical Conditions or Safety Concerns. Bed Mobility: 6 Transfers (B,C,W/C): 6 Gait: 6 Indoor Mobility (Ambulation): Independent Prior Devices Use: None PT Evaluation-Current Subjective Patient and family agree to PT. Objective Patient Orientation: Confused Attachments: IV ROM/Strength ROM Lower Extremities bilateral LE WFL Strength Lower Extremities 4/5 grossly bilateral LE all planes Integumentary/Posture Posture kyphotic Neuromuscular (Tone, Coordination, Reflexes) grossly intact Sensory Vision: Wears Glasses Transfers Lying to Sitting/Side of Bed(Q: 6 Sit to Stand (QC): 4 Chair/Jzy-hr-Togii Xfer(QC): 4 Gait Mode of Locomotion: Walk Anticipated Mode of Locomotion: Walk Walk 10 feet (QC): 4 Walk 50 ft with 2 Turns(QC): 4 Walk 150 ft (QC): 4 Distance: 400' Gait Assistive Device: FWW Comments/Gait Description noted NBOS with ambulate with FWW/steady, functional gait sequence Balance Sitting Static: Normal Sitting Dynamic: Normal Standing Static: Fair Standing Dynamic: Fair Assessment/Needs Patient will be seen short term by skilled PT to address functional mobility to ensure safe return to AL at maximum LOF. Patient, per family, does not use FWW at AL and due to dementia, may be contraindicated for safety due to patient's inability to remember to use FWW. Family agree. Rehab Potential: Fair PT Jail Officer Goals Prison Goals PT Prison Goals Time Frame: May 12, 2023 Roll Left & Right (QC): 6 Sit to Lying (QC): 6 Lying-Sitting on Side/Bed(QC): 6 Sit to Stand (QC): 6 Chair/Tjy-yk-Psxvt Xfer(QC): 6 Toilet Transfer (QC): 6 Walk 10 feet (QC): 6 Walk 50ft with 2 Turns (QC): 6 Walk 150 ft (QC): 6 PT Plan Problem List Problem List: Safety Treatment/Plan Treatment Plan: Continue Plan of Care Treatment Plan: Education, Functional Activity [place], Functional Strength, Gait, Safety, Therapeutic Exercise, Transfers Treatment Duration: May 12, 2023 Frequency: 6 times per week Estimated Hrs Per Day: .25 hour per day Patient and/or Family Agrees t: Yes Time Time In: 1030 Time Out: 1047 DATE: May 03, 2023 Total Billed Treatment Time: 17 Total Billed Treatment 1 visit FA 17 min JUDITH LUCIA PT May 03, 2023 11:16
[2023-05-03] MEDS ORDERED: NS IV 1000 ML 1,000 ML IV SCH (12:00)
--- NOTE | 2023-05-03 12:03 | Cardiac Cath Report ---
Cardiac Cath Report Physician (s)/Manufacturing Analyst (s) Physician FERNANDA LAW MD Pre-Procedure Diagnosis Pre-Procedure Diagnosis: CAD Post-Procedure Note Procedure Start Date: May 03, 2023 Name of Procedure: Left heart catheterization Aortic arch angiogram Findings/Procedure Note PROCEDURE NOTE: 72-year-old gentleman with history of multiple CVA, admitted with generalized weakness and change in mental status, did not have chest pain, noted to have elevation in troponin. After explaining the procedure to the patient, all pros and cons were explained, all questions were answered. The patient signed the consent and then he was placed in the cardiac catheterization laboratory. Groin was prepped in SL fashion local anesthesia was used. Sheath placed in the right radial artery, [place] catheter was advanced to the left ventricular cavity, pressure was measured, pullback LV to aorta was done, engage the right and left coronary system, angiogram was done then the catheter was pulled to the aortic arch and aortic arch angiogram was done. At the end of the procedure the sheath was removed. Vascular band was used FINDINGS: Hemodynamics LV 86/11, end-diastolic pressure of 11 Aorta 72/45 mean of 47 ANATOMY: Left Main is free of obstructive disease Left Anterior Descending has diffuse ectasia nonobstructive disease Left Circumflex is dominant artery with diffuse ectasia nonobstructive disease Right Coronary Artery is nondominant artery occluded at the midportion getting collaterals from the circumflex system LV Gram was not done, pressure was measured Aorta evaluation done with aortic arch angiogram showing slightly prominent aortic arch, no dissection was noted normal origin of the brachiocephalic artery left carotid and left subclavian arteries. CONCLUSION: Totally occluded mid right coronary artery receiving collaterals from the left circumflex system, most probably chronic total occlusion Diffuse coronary ectasia in the left coronary system with small vessel disease Normal left ventricular end-diastolic pressure Slightly prominent aortic arch. Normal great vessels of the neck DISCUSSION AND RECOMMENDATION: Conservative management is recommended no intervention is warranted Anesthesia Type: Conscious Sedation Estimated blood loss (mL): 10 ml Contrast Amount: 60 ml Total Radiation Dose: 530 mGy Post-Procedure Diagnosis Post-operative diagnosis: Non-ST elevation myocardial infarction Coronary artery disease Hypertension CVA FERNANDA LAW MD May 03, 2023 12:03
--- NOTE | 2023-05-03 14:37 | Occupational Therapy Eval ---
OT Evaluation-General/PLF Medical Diagnosis Admission Date May 02, 2023 at 21:28 Medical Diagnosis: AMS Onset Date: May 02, 2023 Therapy Diagnosis Therapy Diagnosis: weakness Precautions Precautions/Isolations: Fall Prevention, Standard Precautions Weight Bear Status Weight Bearing Restriction: Full Weight Bearing Referral Physician: Lara Ruelas Reason: Activity Tolerance, Self Care, Evaluation/Treatment, Strengthening/ROM Medical History Pertinent Medical History: Atrial Fib, CVA (left hemiparesis), Dementia, HTN Social History Home: Assisted Living Current Living Status: Alone Entry Into Home: Level Entry ADL-Prior Level of Function SCALE: Activities may be completed with or without assistive devices. 0-Ahwudcnqmr-ztudizu completes the activity by him/herself with no assistance from a helper. 5-Set-up or Clean-up Assistance-helper sets up or cleans up; patient completes a ctivity. [place] assists only prior to or following the activity. 4-Supervision or Touching Assistance-helper provides verbal cues and/or touching/steadying and/or contact guard assistance as patient completes activity. Assistance may be provided throughout the activity or intermittently. 3-Partial/Moderate Assistance-helper does LESS THAN HALF the effort. [place] lifts, holds or supports trunk or limbs, but provides less than half the effort. 2-Substantial/Maximal Assistance-helper does MORE THAN HALF the effort. [place] lifts or holds trunk or limbs and provides more than half the effort. 3-Cmflhvwwl-onxdqc does ALL the effort. Patient does none of the effort to complete the activity. Or, the assistance of 2 or more helpers is required for the patient to complete the activity. If activity was not attempted, code reason: 7-Patient Refused. 9-Not Applicable-not attempted and the patient did not perform the activity before the current illness, exacerbation or injury. 10-Not Attempted due to Environmental Limitations-(lack of equipment, weather restraints, etc.). 88-Not Attempted due to Medical Conditions or Safety Concerns. Self Care: Needed Some Help Functional Cognition: Needed Some Help Drive Self: No OT Current Status Subjective Preferred name Bill, agreeable to OT, 2 siblings in room Mental Status/Objective Patient Orientation: Person, Place, Situation Current Upper Extremity ROM BUE ROM WFLS Upper Extremity Coordination no unilateral coordination deficits noted Upper Extremity Strength 4/5 no unilateral deficits noted ADL-Treatment ADL-Current family has bag of clothing in car will bring up later Eating (QC): 88 (NPO for surgery) Oral Hygiene (QC): 5 Shower/Bathe Self (QC): 7 Upper Body Dressing (QC): 4 Lower Body Dressing (QC): 4 On/Off Footwear (QC): 5 Toileting Hygiene (QC): 5 Education OT Patient Education: Correct positioning, Energy conservation, Modified ADL techniques, Progress toward Goal/Update tx plan, Purpose of tx/functional activities, Reviewed precautions, Rehab process, Safety issues, Transfer techniques Teaching Recipient: Patient, Family Teaching Methods: Demonstration, Discussion Response to Teaching: Verbalize Understanding, Reinforcement Needed OT Correction Goals Correction Goals Eating (QC): 6 Oral Hygiene (QC): 6 Toileting Hygiene (QC): 5 Shower/Bathe Self (QC): 5 Upper Body Dressing (QC): 6 Lower Body Dressing (QC): 6 On/Off Footwear (QC): 6 1=Demonstrate adherence to instructed precautions during ADL tasks. 2=Patient will verbalize/demonstrate understanding of assistive devices/modifications for ADL. 3=Patient will improve strength/tolerance for activity to enable patient to perform ADL's. OT Education/Plan Problem List/Assessment Assessment: Decreased Safety Aware, Impaired Self-Care Skills Discharge Recommendations Plan/Recommendations: Continue POC Treatment Plan/Plan of Care Patient would benefit from OT for education, treatment and training to promote independence in ADL's, mobility, safety and/or upper extremity function for ADL's. Plan of Care: ADL Retraining, Cognitive Retraining, Concurrent Therapy, Functional Mobility, Group Exercise/Act as Ind Treatment Duration: May 12, 2023 Frequency: 3 times per week (3-5 times per week) Estimated Hrs Per Day: .25 hour per day Agreement: Yes Rehab Potential: Good Time Start Time: 11:00 Stop Time: 11:20 DATE: May 03, 2023 Total Time Billed (hr/min): 20 Billed Treatment Time EVL 20 min FELIBERTO CHARLES OT May 03, 2023 14:36
--- NOTE | 2023-05-03 16:22 | Discharge Summary ---
Diagnosis/Chief Complaint Date of Admission May 02, 2023 at 21:28 Date of Discharge Discharge Date: May 03, 2023 Discharge Diagnosis Fall Elevated troponin consistent with NSTEMI Cardiac catheterization without intervention due to collateral supply Discharge Summary Discharge Physical Examination Allergies: Coded Allergies: Beta-Adrenergic Agents (Verified Allergy, Unknown, 06/26/22) amoxicillin (Verified Allergy, Unknown, 06/26/22) Vitals & I&Os Vital Signs Date Time Temp Pulse Resp B/P (MAP) Pulse Ox O2 Delivery O2 Flow Rate FiO2 05/03/23 17:34 36.5 67 20 123/60 91 Room Air 0.00 05/02/23 22:17 21 General Appearance: Alert, Oriented X3, Cooperative Respiratory: Clear to Auscultation Cardiovascular: Regular Rate Hospital Course Was the Problem List Reviewed?: Yes See HPI: H&P Labs (last 24 hrs) Laboratory Tests 05/02/23 18:52: White Blood Count 6.1, Red Blood Count 4.36, Hemoglobin 12.1L, Hematocrit 37L, Mean Corpuscular Volume 85, Mean Corpuscular Hemoglobin 28, Mean Corpuscular Hemoglobin Concent 33, Red Cell Distribution Width 14.1, Platelet Count 184, Mean Platelet Volume 9.6, Immature Granulocyte % (Auto) 1, Neutrophils (%) (Auto) 79H, Lymphocytes (%) (Auto) 11L, Monocytes (%) (Auto) 7, Eosinophils (%) (Auto) 2, Basophils (%) (Auto) 1, Neutrophils # (Auto) 4.8, Lymphocytes # (Auto) 0.7L, Monocytes # (Auto) 0.4, Eosinophils # (Auto) 0.1, Basophils # (Auto) 0.0, Immature Granulocyte # (Auto) 0.1, Prothrombin Time 13.3, INR Comment 1.0, Activated Partial Thromboplast Time 28, Sodium Level 133L, Potassium Level 4.0, Chloride Level 101, Carbon Dioxide Level 24, Anion Gap 8, Blood Urea Nitrogen 16, Creatinine 1.10, Estimat Glomerular Filtration Rate 71, BUN/Creatinine Ratio 15, Glucose Level 121H, Glucometer 126H, Calcium Level 9.0, Corrected Calcium 9.0, Magnesium Level 1.9, Total Bilirubin 0.7, Aspartate Amino Transf (AST/SGOT) 16, Alanine Aminotransferase (ALT/SGPT) 16, Alkaline Phosphatase 89, Troponin I 0.057H, Total Protein 6.3L, Albumin 4.0 05/02/23 19:08: Urine Color YELLOW, Urine Clarity SL CLOUDY, Urine pH 6.0, Urine Specific [place] >=1.030, Urine Protein 1+H, Urine Glucose (UA) NEGATIVE, Urine Ketones NEGATIVE, Urine Nitrite NEGATIVE, Urine Bilirubin NEGATIVE, Urine Urobilinogen 0.2, Urine Leukocyte Esterase NEGATIVE, Urine RBC (Auto) NEGATIVE, Urine RBC 0- 2, Urine WBC 0-2, Urine Squamous Epithelial Cells NONE, Urine Crystals PRESENTH, Urine Amorphous Sediment MOD [place] URATESH, Urine Bacteria TRACE, Urine Casts PRESENT, Urine Hyaline Casts 5-10H, Urine Mucus LARGEH, Urine Culture Indicated NO 05/02/23 21:27: Troponin I 0.276H 05/03/23 05:35: White Blood Count 8.7, Red Blood Count 4.26L, Hemoglobin 11.9L, Hematocrit 35L, Mean Corpuscular Volume 83, Mean Corpuscular Hemoglobin 28, Mean Corpuscular Hemoglobin Concent 34, Red Cell Distribution Width 13.9, Platelet Count 172, Mean Platelet Volume 9.5, Immature Granulocyte % (Auto) 1, Neutrophils (%) (Auto) 80H, Lymphocytes (%) (Auto) 11L, Monocytes (%) (Auto) 7, Eosinophils (%) (Auto) 1, Basophils (%) (Auto) 0, Neutrophils # (Auto) 7.0, Lymphocytes # (Auto) 1.0, Monocytes # (Auto) 0.6, Eosinophils # (Auto) 0.0, Basophils # (Auto) 0.0, Immature Granulocyte # (Auto) 0.0, Sodium Level 132L, Potassium Level 4.0, Chloride Level 102, Carbon Dioxide Level 24, Anion Gap 6, Blood Urea Nitrogen 12, Creatinine 0.85, Estimat Glomerular Filtration Rate 92, BUN/Creatinine Ratio 14, Glucose Level 110H, Calcium Level 8.7, Corrected Calcium 8.9, Total Bilirubin 1.1H, Aspartate Amino Transf (AST/SGOT) 16, Alanine Aminotransferase (ALT/SGPT) 16, Alkaline Phosphatase 69, Total Protein 6.0L, Albumin 3.8 Pending Labs Laboratory Tests 05/02/23 18:52: White Blood Count 6.1, Red Blood Count 4.36, Hemoglobin 12.1, Hematocrit 37, Mean Corpuscular Volume 85, Mean Corpuscular Hemoglobin 28, Mean Corpuscular Hemoglobin Concent 33, Red Cell Distribution Width 14.1, Platelet Count 184, Mean Platelet Volume 9.6, Immature Granulocyte % (Auto) 1, Neutrophils (%) (Au to) 79, Lymphocytes (%) (Auto) 11, Monocytes (%) (Auto) 7, Eosinophils (%) (Auto) 2, Basophils (%) (Auto) 1, Neutrophils # (Auto) 4.8, Lymphocytes # (Auto) 0.7, Monocytes # (Auto) 0.4, Eosinophils # (Auto) 0.1, Basophils # (Auto) 0.0, Immature Granulocyte # (Auto) 0.1, Prothrombin Time 13.3, INR Comment 1.0, Activated Partial Thromboplast Time 28, Sodium Level 133, Potassium Level 4.0, Chloride Level 101, Carbon Dioxide Level 24, Anion Gap 8, Blood Urea Nitrogen 16, Creatinine 1.10, Estimat Glomerular Filtration Rate 71, BUN/Creatinine Ratio 15, Glucose Level 121, Glucometer 126, Calcium Level 9.0, Corrected Calcium 9.0, Magnesium Level 1.9, Total Bilirubin 0.7, Aspartate Amino Transf (AST/SGOT) 16, Alanine Aminotransferase (ALT/SGPT) 16, Alkaline Phosphatase 89, Troponin I 0.057, Total Protein 6.3, Albumin 4.0 05/02/23 19:08: Urine Color YELLOW, Urine Clarity SL CLOUDY, Urine pH 6.0, Urine Specific [place] >=1.030, Urine Protein 1+, Urine Glucose (UA) NEGATIVE, Urine Ketones NEGATIVE, Urine Nitrite NEGATIVE, Urine Bilirubin NEGATIVE, Urine Urobilinogen 0.2, Urine Leukocyte Esterase NEGATIVE, Urine RBC (Auto) NEGATIVE, Urine RBC 0- 2, Urine WBC 0-2, Urine Squamous Epithelial Cells NONE, Urine Crystals PRESENT, Urine Amorphous Sediment MOD [place] URATES, Urine Bacteria TRACE, Urine Casts PRESENT, Urine Hyaline Casts 5-10, Urine Mucus LARGE, Urine Culture Indicated NO 05/02/23 21:27: Troponin I 0.276 05/03/23 05:35: White Blood Count 8.7, Red Blood Count 4.26, Hemoglobin 11.9, Hematocrit 35, Mean Corpuscular Volume 83, Mean Corpuscular Hemoglobin 28, Mean Corpuscular Hemoglobin Concent 34, Red Cell Distribution Width 13.9, Platelet Count 172, Mean Platelet Volume 9.5, Immature Granulocyte % (Auto) 1, Neutrophils (%) (Auto) 80, Lymphocytes (%) (Auto) 11, Monocytes (%) (Auto) 7, Eosinophils (%) (Auto) 1, Basophils (%) (Auto) 0, Neutrophils # (Auto) 7.0, Lymphocytes # (Auto) 1.0, Monocytes # (Auto) 0.6, Eosinophils # (Auto) 0.0, Basophils # (Auto) 0.0, Immature Granulocyte # (Auto) 0.0, Sodium Level 132, Potassium Level 4.0, Chloride Level 102, Carbon Dioxide Level 24, Anion Gap 6, Blood Urea Nitrogen 12, Creatinine 0.85, Estimat Glomerular Filtration Rate 92, BUN/Creatinine Ratio 14, Glucose Level 110, Calcium Level 8.7, Corrected Calcium 8.9, Total Bilirubin 1.1, Aspartate Amino Transf (AST/SGOT) 16, Alanine Aminotransferase (ALT/SGPT) 1 6, Alkaline Phosphatase 69, Total Protein 6.0, Albumin 3.8 Discharge Home Medications: Active Scripts Active Reported Magnesium (Magnesium Oxide) 400 Mg Magnesium Tablet 400 Mg PO DAILY Tylenol (Acetaminophen) 325 Mg Tablet 650 Mg PO Q4H PRN Flonase Allergy Relief (Fluticasone Propionate) 50 Mcg/Actuation [place].susp 1 [place] NSEACH DAILY PRN Donepezil HCl 10 Mg Tablet 10 Mg PO HS Calcium 600 + Vit D Caplet (Calcium Carbonate/Vitamin D3) 600 Mg Calcium-10 Mcg (400 Unit) Tablet 2 Each PO DAILY Valsartan 320 Mg Tablet 320 Mg PO DAILY Melatonin 5 Mg Tablet 5 Mg PO HS Metoprolol Succinate 25 Mg Tab.er.24h 25 Mg PO HS B-12 (Cyanocobalamin (Vitamin B-12)) 1,000 Mcg Tablet 1,000 Mcg PO HS Atorvastatin Calcium 40 Mg Tablet 40 Mg PO HS Risperidone 0.5 Mg Tablet 0.5 Mg PO HS Flomax (Tamsulosin HCl) 0.4 Mg Cap 0.4 Mg PO HS Vitamin B-1 (Thiamine HCl) 100 Mg Tablet 100 Mg PO HS Sertraline HCl 100 Mg Tablet 150 Mg PO DAILY TAKES 1 & (100MG) TABS Cetirizine HCl 10 Mg Tablet 10 Mg PO DAILY Aspirin EC (Aspirin) 81 Mg Tablet.dr 81 Mg PO DAILY Instructions to patient/family Please see electronic discharge instructions given to patient. Clinical Quality Measures DVT/VTE Risk/Contraindication: Contraindications-Pharm: Other *list below* Other: aneurysm MARIANNE FAUST DO May 03, 2023 16:22
[2023-05-03] MEDS ORDERED: risperiDONE 0.5 MG (RisperDAL) TABLET PO SCH (21:00)
[2023-05-04] MEDS ORDERED: NS 100 ML (IVPB) BAG IV SCH (09:00)
== END 2023-05-03 18:18 ==
LOC: EDUNIT# 18:08 → ER 18:09 → 4TH 21:28
PROVIDERS: ADMIT Internal Medicine; ATTEND Internal Medicine
DX: I25.10 Atherosclerotic heart disease of native coronary artery without angina pectoris (principal); I21.4 Non-ST elevation (NSTEMI) myocardial infarction; I63.9 Cerebral infarction, unspecified; I10 Essential (primary) hypertension; I65.29 Occlusion and stenosis of unspecified carotid artery; I48.91 Unspecified atrial fibrillation; R77.8 Other specified abnormalities of plasma proteins; R29.6 Repeated falls; R41.82 Altered mental status, unspecified; E78.5 Hyperlipidemia, unspecified; E11.9 Type 2 diabetes mellitus without complications; Z87.891 Personal history of nicotine dependence; Z79.899 Other long term (current) drug therapy; Z86.73 Personal history of transient ischemic attack (TIA), and cerebral infarction without residual deficits
CPT/HCPCS: 36221; 70450; 71045; 72125; 72170; 73080; 80053 ×2; 81000; 82947; 83735; 84484; 85025 ×2; 85610; 85730; 93005; 93041; 93458; 96361 ×2; 97162; 97165; 99284; C1894; C8929; G0378; 36415; 93306

== ENCOUNTER → 2023-05-11 | Outpatient (CLI) | payer MEDICARE, OTHER ==
[~2023-05-11] MED LIST changes: +ACET325T38 PO; +CALC-694 PO; +DONE10TA41 PO; +FLUT9.9S NSEACH; +MAGN400T39 PO; +VALS320T15 PO
--- NOTE | 2023-05-11 13:41 | Diagnostic Imaging Report ---
INDICATION: Left hip pain 2 views of the left hip show no acute fracture or dislocation. Joint spaces well maintained. 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 IMPRESSION: No acute abnormality seen in the left hip. Dictated by: Dictated on workstation # [id number]
== END ==
LOC: RAD 12:39
PROVIDERS: ATTEND Family Medicine
DX: M25.552 Pain in left hip (principal)
CPT/HCPCS: 73502